=== PATIENT | female | born 1940 | race Caucasian/White ===

== ENCOUNTER → 2023-12-22 11:45 | Outpatient (REF) | payer MEDICARE, OTHER, SELFPAY ==
[2023-12-22 13:02] LABS: % Basophils 0.8 % (0-2); % Eosinophils 1.2 % (0-6); % Immature Granulocytes 0.3 % (0-0.5); % Lymphocytes 36.3 % (20.5-51.1); % Monocytes 6.2 % (1.7-9.3); % Neutrophils 55.2 % (42.2-75.2); Absolute Basophils 0.1 10^3/uL (0-0.2); Absolute Eosinophils 0.1 10^3/uL (0-0.7); Absolute Lymphocytes 2.8 10^3/uL (1.2-3.4); Absolute Monocytes 0.5 10^3/uL (0.1-0.6); Absolute Neutrophils 4.2 10^3/uL (1.4-6.5); Hematocrit 35.9 % (37.0-47.0); Hemoglobin 11.7 g/dL (12.0-16.0); Mean Corp Hgb Conc. 32.6 g/dL (33.0-37.0); Mean Corpuscular Hgb 32.1 pg (27.0-31.0); Mean Corpuscular Volume 98.6 fL (81.0-99.0); Mean Platelet Volume 10.7 fL (7.4-10.4); Nucleated Red Blood Cells % 0 %; Platelet Count 270 10^3/uL (130-400); Red Blood Cell Count 3.64 10^6/uL (4.20-5.40); Red Cell Dist. Width 12.6 % (11.5-14.5); White Blood Cell Count 7.6 10^3/uL (4.8-10.8)
[2023-12-22 13:04] LABS: Urine Albumin Negative (Neg - Trace); Urine Bilirubin Negative (Negative); Urine Character Clear (Clear); Urine Color Yellow; Urine Glucose Negative (Negative); Urine Ketone Negative (Negative); Urine Leukocyte Trace (Negative); Urine Nitrite Negative (Negative); Urine Occult Blood Negative (Negative); Urine Specific Gravity 1.015 (<1.030); Urine Urobilinogen Negative (Neg - 1+)
[2023-12-22 13:29] LABS: Urine Red Blood Cell 0-2 /HPF (0-2); Urine White Cell 0-2 /HPF (0-5)
[2023-12-22 13:44] LABS: ALT (SGPT) 25 U/L (0-35); AST (SGOT) 33 U/L (14-36); Albumin 4.5 g/dl (3.5-5.0); Alkaline Phosphatase 83 U/L (38-126); Blood Urea Nitrogen 21 mg/dl (7-17); Calcium 9.4 mg/dl (8.4-10.2); Carbon Dioxide 27 mmol/L (22-30); Chloride 103 mmol/L (98-107); Glucose 86 mg/dl (70-99); HDL Cholesterol 77 mg/dl; LDL Cholesterol, Calculated 68 mg/dl; Potassium 4.5 mmol/L (3.5-5.1); Sodium 137 mmol/L (135-145); Total Bilirubin 0.6 mg/dl (0.2-1.3); Total Cholesterol 168 mg/dl (50-199); Total Protein 7.6 g/dl (6.3-8.2); Triglyceride 117 mg/dl (10-149); Very Low Density Lipoprotein 23 mg/dl (0-30); eGFR > 60.00
[2023-12-22 13:59] LABS: Free T4 0.93 ng/dl (0.78-2.19); Vitamin D, 25-OH*** 54.9 ng/mL (30-80)
== END ==
LOC: REG 11:45
PROVIDERS: ATTENDING PHYSICIAN Internal Medicine Geriatric Medicine
DX: I10 Essential (primary) hypertension (principal); E78.2 Mixed hyperlipidemia; E06.9 Thyroiditis, unspecified; R09.89 Other specified symptoms and signs involving the circulatory and respiratory systems; R59.9 Enlarged lymph nodes, unspecified; G90.01 Carotid sinus syncope; M54.12 Radiculopathy, cervical region; M06.09 Rheumatoid arthritis without rheumatoid factor, multiple sites; M79.18 Myalgia, other site; R13.19 Other dysphagia; R22.1 Localized swelling, mass and lump, neck; R20.2 Paresthesia of skin; R26.89 Other abnormalities of gait and mobility; Z13.89 Encounter for screening for other disorder; Z79.899 Other long term (current) drug therapy
CPT/HCPCS: 36415; 80053; 80061; 81003; 81015; 82306; 84439; 84443; 85025

== ENCOUNTER → 2024-01-10 15:02 | Outpatient (REF) | payer MEDICARE, OTHER, SELFPAY | LOC: WDC 15:02 | PROVIDERS: ATTENDING PHYSICIAN Internal Medicine Geriatric Medicine | DX: Z12.31 Encounter for screening mammogram for malignant neoplasm of breast (principal) | CPT/HCPCS: 77063; 77067 ==

== ENCOUNTER → 2024-02-21 07:55 | Outpatient (REF) | payer MEDICARE, OTHER, SELFPAY | LOC: RSP 07:55 | PROVIDERS: ATTENDING PHYSICIAN Internal Medicine Cardiovascular Disease; FAMILY PHYSICIAN Internal Medicine Geriatric Medicine | DX: R06.09 Other forms of dyspnea (principal) | CPT/HCPCS: 94727; 94729; 71046; 88738; 94010 ==

== ENCOUNTER → 2024-04-06 08:45 | Outpatient (REF) | payer MEDICARE, OTHER, SELFPAY ==
[2024-04-06 09:29] LABS: % Basophils 0.7 % (0-2); % Eosinophils 1.4 % (0-6); % Immature Granulocytes 0.3 % (0-0.5); % Lymphocytes 30.9 % (20.5-51.1); % Neutrophils 60.7 % (42.2-75.2); Absolute Basophils 0.1 10^3/uL (0-0.2); Absolute Eosinophils 0.1 10^3/uL (0-0.7); Absolute Lymphocytes 2.8 10^3/uL (1.2-3.4); Absolute Monocytes 0.5 10^3/uL (0.1-0.6); Absolute Neutrophils 5.5 10^3/uL (1.4-6.5); Hematocrit 35.5 % (37.0-47.0); Mean Corp Hgb Conc. 33.8 g/dL (33.0-37.0); Mean Corpuscular Hgb 32.2 pg (27.0-31.0); Mean Corpuscular Volume 95.2 fL (81.0-99.0); Mean Platelet Volume 10.1 fL (7.4-10.4); Nucleated Red Blood Cells % 0 %; Platelet Count 295 10^3/uL (130-400); Red Blood Cell Count 3.73 10^6/uL (4.20-5.40); Red Cell Dist. Width 12.4 % (11.5-14.5)
[2024-04-06 09:51] LABS: ALT (SGPT) 25 U/L (0-35); AST (SGOT) 30 U/L (14-36); Albumin 4.6 g/dl (3.5-5.0); Alkaline Phosphatase 78 U/L (38-126); Blood Urea Nitrogen 22 mg/dl (7-17); Calcium 9.7 mg/dl (8.4-10.2); Carbon Dioxide 29 mmol/L (22-30); Chloride 100 mmol/L (98-107); Glucose 93 mg/dl (70-99); Potassium 4.5 mmol/L (3.5-5.1); Sodium 137 mmol/L (135-145); Total Bilirubin 0.6 mg/dl (0.2-1.3); Total Protein 7.5 g/dl (6.3-8.2); eGFR > 60.00
[2024-04-06 09:52] LABS: C-Reactive Protein < 5.00 mg/L (0.0-10.00)
[2024-04-06 10:52] LABS: Erythrocyte Sed Rate 23 mm/hour (0-20)
[2024-04-08 14:39] LABS: Quantiferon Mitogen minus NIL 9.91 IU/mL; Quantiferon NIL 0.09 IU/mL; Quantiferon Plus TB1 minus NIL 0.01 IU/mL (<=0.34); Quantiferon Plus TB2 minus NIL 0.06 IU/mL (<=0.34); Quantiferon TB Gold Plus Negative (Negative)
== END ==
LOC: REG 08:45
PROVIDERS: ATTENDING PHYSICIAN Internal Medicine Rheumatology; FAMILY PHYSICIAN Internal Medicine Geriatric Medicine
DX: M06.09 Rheumatoid arthritis without rheumatoid factor, multiple sites (principal); M17.11 Unilateral primary osteoarthritis, right knee; M54.2 Cervicalgia; M81.0 Age-related osteoporosis without current pathological fracture; Z51.81 Encounter for therapeutic drug level monitoring
CPT/HCPCS: 36415; 80053; 85025; 85652; 86140; 86480

== ENCOUNTER → 2024-06-21 07:40 | Outpatient (REF) | payer MEDICARE, OTHER, SELFPAY | LOC: RAD 07:40 | PROVIDERS: ATTENDING PHYSICIAN Internal Medicine Rheumatology; FAMILY PHYSICIAN Internal Medicine Geriatric Medicine | DX: M81.0 Age-related osteoporosis without current pathological fracture (principal) | CPT/HCPCS: 77080 ==

== ENCOUNTER → 2024-12-15 10:33 | Outpatient (REF) | payer MEDICARE, OTHER, SELFPAY ==
[2024-12-15 11:24] LABS: % Basophils 0.6 % (0-2); % Eosinophils 1.4 % (0-6); % Immature Granulocytes 0.2 % (0-0.5); % Lymphocytes 29.5 % (20.5-51.1); % Monocytes 6.7 % (1.7-9.3); % Neutrophils 61.6 % (42.2-75.2); Absolute Basophils 0.1 10^3/uL (0-0.2); Absolute Eosinophils 0.1 10^3/uL (0-0.7); Absolute Lymphocytes 2.5 10^3/uL (1.2-3.4); Absolute Monocytes 0.6 10^3/uL (0.1-0.6); Absolute Neutrophils 5.1 10^3/uL (1.4-6.5); Hematocrit 37.9 % (37.0-47.0); Hemoglobin 12.5 g/dL (12.0-16.0); Mean Corpuscular Hgb 32.8 pg (27.0-31.0); Mean Corpuscular Volume 99.5 fL (81.0-99.0); Mean Platelet Volume 10.3 fL (7.4-10.4); Nucleated Red Blood Cells % 0 %; Platelet Count 296 10^3/uL (130-400); Red Blood Cell Count 3.81 10^6/uL (4.20-5.40); Red Cell Dist. Width 12.4 % (11.5-14.5); White Blood Cell Count 8.4 10^3/uL (4.8-10.8)
[2024-12-15 11:32] LABS: Urine Albumin Negative (Neg - Trace); Urine Bilirubin Negative (Negative); Urine Character Clear (Clear); Urine Color Yellow; Urine Glucose Negative (Negative); Urine Ketone Negative (Negative); Urine Leukocyte 3+ (Negative); Urine Nitrite Negative (Negative); Urine Occult Blood 1+ (Negative); Urine Urobilinogen Negative (Neg - 1+)
[2024-12-15 11:52] LABS: Urine Bacteria Moderate (Negative); Urine White Cell >100 /HPF (0-5)
[2024-12-15 11:56] LABS: ALT (SGPT) 23 U/L (0-35); AST (SGOT) 28 U/L (14-36); Albumin 4.9 g/dl (3.5-5.0); Alkaline Phosphatase 76 U/L (38-126); Blood Urea Nitrogen 20 mg/dl (7-17); Carbon Dioxide 28 mmol/L (22-30); Chloride 100 mmol/L (98-107); Glucose 94 mg/dl (70-99); HDL Cholesterol 65 mg/dl; LDL Cholesterol, Calculated 88 mg/dl; Phosphorus 4.2 mg/dl (2.5-4.5); Potassium 4.6 mmol/L (3.5-5.1); Sodium 138 mmol/L (135-145); Total Bilirubin 0.8 mg/dl (0.2-1.3); Total Cholesterol 186 mg/dl (50-199); Total Protein 8.1 g/dl (6.3-8.2); Triglyceride 169 mg/dl (10-149); Very Low Density Lipoprotein 33 mg/dl (0-30); eGFR > 60.00
[2024-12-15 12:11] LABS: Vitamin D, 25-OH*** 50.1 ng/mL (30-80)
== END ==
LOC: REG 10:33
PROVIDERS: ATTENDING PHYSICIAN Internal Medicine Cardiovascular Disease; FAMILY PHYSICIAN Internal Medicine Geriatric Medicine
DX: M79.10 Myalgia, unspecified site (principal); M06.9 Rheumatoid arthritis, unspecified; I11.0 Hypertensive heart disease with heart failure; E06.9 Thyroiditis, unspecified; R59.9 Enlarged lymph nodes, unspecified; M54.12 Radiculopathy, cervical region; M06.09 Rheumatoid arthritis without rheumatoid factor, multiple sites; M79.18 Myalgia, other site; R13.19 Other dysphagia; R22.1 Localized swelling, mass and lump, neck; R20.2 Paresthesia of skin; Z13.31 Encounter for screening for depression; I50.32 Chronic diastolic (congestive) heart failure; I50.30 Unspecified diastolic (congestive) heart failure; R06.09 Other forms of dyspnea
CPT/HCPCS: 36415; 73564; 80053; 80061; 81003; 81015; 82306; 84100; 85025

== ENCOUNTER 2024-12-17 20:27 | Emergency (ER) | payer MEDICARE, OTHER, SELFPAY ==
[2024-12-17 20:33] VITALS: BP 171/84
[2024-12-17] MEDS: TYLENOL 650 MG PO (22:28)
--- NOTE | 2024-12-17 22:30 | ED.GENMED ---
History of Present Illness
General
Chief Complaint: Head Injury
Source: patient and family (Patient's daughter at bedside)
Exam Limitations: none
Time Seen by Provider: 12/17/24 21:24
Nursing documentation reviewed up to this point in time: agreed with
History of Present Illness
History of Present Illness:
Patient is an 84-year-old female presenting to the emergency department after head injury. Patient states she was assisting her who is in a nursing facility with changing his clothes when she lost her balance falling backwards striking the
left side of her head on the floor. This fall was witnessed by both her and a nearby aide at his nursing facility. There was no loss of conscious. Patient was able to get up independently. Patient denies any preceding lightheadedness,
dizziness, chest pain, shortness of breath and states this was simply mechanical fall after losing her balance. This happened about 1 to 2 hours prior to arrival in emergency department.
At this time�patient reports pain on the left side of her head and a bump patient denies any nausea, vomiting, lightheadedness/dizziness, visual changes, neck pain or back pain. Patient states she has been and relating independently. Patient
denies any pain in her extremities. Patient's daughter states she seems at her baseline mental status.
Patient takes a baby aspirin, otherwise no blood thinners.
Past History
Past History
ED Past Medical History: GERD, HTN, Hypercholesterolemia, Psychiatric (Anxiety, Agoraphobia with panic disorder.) and Other (Rheumatoid arthritis, polymyalgia rheumatica, osteoporosis)
ED Past Surgical History: Gynecological (Hysterectomy) and Other (Inguinal hernia repair)
Social History
Tobacco: Non-smoker
Alcohol: None
Drug: None
Personal:
Living: with family
Employment: Retired
Family History
Family History: Other
Review of Systems
Review of Systems
Allergies reviewed?: Yes
All Other Systems: ROS reviewed and negative except as documented in HPI and ROS
Phy Exam
Physical Exam
Physical Exam:
GENERAL: No acute distress. Vital stable.
HEENT: Hematoma with associated tenderness on the left posterior parietal scalp, extraocular muscles intact, PERRL, no signs of entrapment, dentition intact, no tenderness to TMJ, no other obvious trauma
NECK: no midline tenderness, normal range of motion, no other obvious trauma
BACK: no midline tenderness, no ecchymoses, no other obvious trauma
CHEST: no tenderness, no flail segment, no subcutaneous emphysema, no other obvious trauma
LUNGS: clear to auscultation bilaterally
CARDIOVASCULAR: regular rate and rhythm
ABDOMEN: soft, non-tender, no masses, no other obvious trauma
PELVIS: stable, no obvious injury
EXTREMITIES: moving all extremities, bilateral upper and lower extremities atraumatic and nontender with full range of motion, specifically no pain with internal/external rotation of bilateral hips distal pulses intact, no other obvious trauma
NEUROLOGIC: awake, alert x 3, no focal deficits, fluid speech, steady gait, normal [id number], normal sensation
Course
Orders/Labs/Results
Orders:
Orders
12/17/24 20:37
CT Head W/o Iv Contrast Urgent
Comment:
Reason For Exam: fall, posterior head strike with hematoma
12/17/24 21:29
Cervical Spine wo Contrast CT [CT Cervical Spine W/o Iv Contr] Urgent
Comment:
Reason For Exam: fall, posterior head strike
12/17/24 22:24
Acetaminophen [Tylenol] 650 mg PO NOW STA
Vital Signs
Initial and Last Documented VS:
Initial Vital Signs
Temp Pulse Resp BP Pulse Ox
98.1 F 97 18 171/84 98
12/17/24 20:33 12/17/24 20:33 12/17/24 20:33 12/17/24 20:33 12/17/24 20:33
Last Documented Vital Signs
Temp Pulse Resp BP Pulse Ox
98.1 F 92 16 148/70 98
12/17/24 20:33 12/17/24 23:22 12/17/24 23:22 12/17/24 23:22 12/17/24 23:22
MDM/Problems Addressed
Differential Diagnosis Includes:
Not limited to: Scalp hematoma, scalp contusion, concussion, subdural hematoma, epidural hematoma, cervical spine fracture, etc.
MDM/Problems Addressed:
84 year old female not on anticoagulation presenting with head injury after mechanical fall while assisting her to change. This fall was witnessed and no history of LOC. No proceeding dizziness, chest pain, shortness of breath. Patient now
with localized headache around scalp contusion but denies any other associated symptoms. Vitals and exam as above. Patient arrives A&O x3 without any focal neurologic deficits. There is a contusion noted to left posterior-parietal scalp. No
tenderness of cervical spine, midline spine, or evidence of extremity injury. Will give tylenol and check CT head/ cervical spine.
Update: CT head reveals scalp hematoma. No other acute traumatic injuries to head or cervical spine. Discussed with patient and daughter. She has remained hemodynamically stable and neurologically intact. Ultimately feel patient is stable for
discharge home with PCP f/u. Patient will stay with her daughter oriana. Very strict return precautions discussed. Patient verbalized understanding.
Chronic conditions affecting care:
N/A
Acute Exacerbation and/or Progression of Chronic Illness:
N/A
*Radiology
Radiology exam reviewed: preliminary read by ED provider and radiology read reviewed (No acute traumatic injury)
*Pulse Oximetry
Patient hypoxic: no
*EKG
Interpreted by ED Provider?: NA
*Sports Management Intern Interpretation
Rate: Sports Management Intern- N/A
*Critical Care Note
Total Time (30-74mins, 75-104mins- exclusive of procedures): Not Applicable
ED Attending Note
-
Portions of this chart may have been created with voice recognition software.� Occasional wrong word or��sound alike� substitutions may have occurred due to the inherent limitations of voice recognition software.
Discharge Plan
Departure
Patient Disposition: Home (Routine Discharge)
Date of Disposition: 12/17/24
Time of Disposition: 23:05
Patient with high blood pressure during this ER visit?: Yes
Condition: Good
Covid-19: Not Applicable
Discharge Problem:
Hematoma of scalp, Fall
Instructions: Head injury in adults, BLOOD PRESSURE, Hematoma
Prescriptions:
No Action
aspirin 81 MG tablet,delayed release (DR/EC)
81 mg PO DAILY
ascorbic acid (vitamin C) [Vitamin C] 500 MG tablet
1,000 mg PO DAILY
calcium carbonate-vitamin D2 1 EACH tablet
1 tab PO DAILY
folic acid 1 MG tablet
1 mg PO DAILY
Multivitamin With D3
1 tab PO DAILY
infliximab [Remicade] 100 MG/10 ML recon soln
100 mg IV .[id number]
primidone 50 MG tablet
25 mg PO DAILY
atorvastatin 10 MG tablet
10 mg PO DAILY
denosumab [Prolia] 60 MG/ML syringe
60 mg SQ .[id number]
levofloxacin 500 MG tablet
500 mg PO DAILY Qty: 6 0RF
methotrexate sodium 2.5 MG tablet
15 mg PO WEEKLY Qty: 0 0RF
Rx Instructions:
restart 06/05/18
prednisone 50 MG tablet
50 mg PO DAILY Qty: 5 0RF
dextromethorphan-guaifenesin 5 ML syrup
10 ml PO Q4HPRN PRN (Reason: cough) Qty: 200 0RF
methylprednisolone [Medrol (Arturo)] 4 MG tablets,dose pack
4 tab PO . DIRECT Qty: 1 0RF
prednisone 20 MG tablet
40 mg PO DAILY Qty: 8 0RF
metoprolol succinate [Toprol XL] 25 MG tablet extended release 24 hr
25 mg PO DAILY Qty: 30 0RF
Referrals:
Stephan Ho MD [Family Provider] - Follow up in 2-3 days
Activity Restrictions/Additional Instructions:
Return to the emergency department with any severe headache or neck pain, nausea/vomiting, changes in vision, dizziness, changes in mental status, worsening in current symptoms, or any other concern
-As discussed�your CT imaging did show a hematoma to your scalp. However�there was no evidence of skull fracture or intracranial bleeding.
-You should continue to apply ice. Take Tylenol as needed for pain.
-Follow-up with primary care in a few days for further evaluation/management to ensure that symptoms are improving
Monitor your symptoms closely and return to the emergency department with any acute worsening/new symptoms or any other concerns
Interventions
Interventions:
*Risk Screen - Suicide Last Done: 12/17/24 20:33
*General Assessment Last Done: 12/17/24 20:33
*Neglect/Abuse Screening Last Done: 12/17/24 20:33
*ED- Fall Risk Assessment Last Done: 12/17/24 21:22
*ED COVID-19 Vaccine History Last Done: 12/17/24 21:22
*Nursing Disposition Last Done: 12/17/24 23:22
ED-Musculoskeletal Assessment Last Done: 12/17/24 21:22
ED- Neurological Assessment Last Done: 12/17/24 21:22
ED-Skin Assessment Last Done: 12/17/24 21:22
Discharge Date and Time
Discharge Date/Time: 12/17/24 23:23
Print Language: STATELESS
[2024-12-17 23:22] VITALS: BP 148/70
== END 2024-12-17 23:23 | disposition home or self-care (01) ==
LOC: EMR 20:27
PROVIDERS: EMERGENCY PHYSICIAN Emergency Medicine; FAMILY PHYSICIAN Internal Medicine Geriatric Medicine
DX: S00.03XA Contusion of scalp, initial encounter (principal); W19.XXXA Unspecified fall, initial encounter; I10 Essential (primary) hypertension
CPT/HCPCS: 99284; 70450; 72125

== ENCOUNTER → 2025-02-13 07:41 | Outpatient (REF) | payer MEDICARE, OTHER, SELFPAY | LOC: WDC 07:41 | PROVIDERS: ATTENDING PHYSICIAN Internal Medicine Geriatric Medicine | DX: Z12.31 Encounter for screening mammogram for malignant neoplasm of breast (principal) | CPT/HCPCS: 77063; 77067 ==

== ENCOUNTER → 2025-03-01 09:39 | Outpatient (REF) | payer MEDICARE, OTHER, SELFPAY ==
[2025-03-01 10:56] LABS: % Basophils 0.6 % (0-2); % Eosinophils 1.5 % (0-6); % Immature Granulocytes 0.3 % (0-0.5); % Lymphocytes 30.7 % (20.5-51.1); % Monocytes 6.1 % (1.7-9.3); % Neutrophils 60.8 % (42.2-75.2); Absolute Basophils 0.1 10^3/uL (0-0.2); Absolute Eosinophils 0.1 10^3/uL (0-0.7); Absolute Lymphocytes 2.4 10^3/uL (1.2-3.4); Absolute Monocytes 0.5 10^3/uL (0.1-0.6); Absolute Neutrophils 4.8 10^3/uL (1.4-6.5); Hematocrit 38.8 % (37.0-47.0); Hemoglobin 12.8 g/dL (12.0-16.0); Mean Corpuscular Hgb 33.2 pg (27.0-31.0); Mean Corpuscular Volume 100.5 fL (81.0-99.0); Mean Platelet Volume 10.8 fL (7.4-10.4); Nucleated Red Blood Cells % 0 %; Platelet Count 259 10^3/uL (130-400); Red Blood Cell Count 3.86 10^6/uL (4.20-5.40); Red Cell Dist. Width 12.5 % (11.5-14.5); White Blood Cell Count 7.9 10^3/uL (4.8-10.8)
[2025-03-01 11:02] LABS: ALT (SGPT) 21 U/L (0-35); AST (SGOT) 26 U/L (14-36); Albumin 4.8 g/dl (3.5-5.0); Alkaline Phosphatase 73 U/L (38-126); Blood Urea Nitrogen 18 mg/dl (7-17); Calcium 9.9 mg/dl (8.4-10.2); Carbon Dioxide 32 mmol/L (22-30); Chloride 105 mmol/L (98-107); Glucose 95 mg/dl (70-99); Potassium 5.4 mmol/L (3.5-5.1); Sodium 144 mmol/L (135-145); Total Bilirubin 0.4 mg/dl (0.2-1.3); Total Protein 8.5 g/dl (6.3-8.2); eGFR > 60.00
[2025-03-01 11:14] LABS: Erythrocyte Sed Rate 65 mm/hour (0-20)
[2025-03-01 14:46] LABS: C-Reactive Protein < 5.00 mg/L (0.0-10.00)
== END ==
LOC: REG 09:39
PROVIDERS: ATTENDING PHYSICIAN Internal Medicine Rheumatology; FAMILY PHYSICIAN Internal Medicine Geriatric Medicine
DX: M06.09 Rheumatoid arthritis without rheumatoid factor, multiple sites (principal); M17.11 Unilateral primary osteoarthritis, right knee; M54.2 Cervicalgia; M81.0 Age-related osteoporosis without current pathological fracture; Z51.81 Encounter for therapeutic drug level monitoring
CPT/HCPCS: 36415; 80053; 85025; 85652; 86140

== ENCOUNTER → 2025-04-08 09:31 | Outpatient (REF) | payer MEDICARE, OTHER, SELFPAY ==
[2025-04-08 10:52] LABS: Hematocrit 34.7 % (37.0-47.0); Hemoglobin 11.6 g/dL (12.0-16.0); Mean Corp Hgb Conc. 33.4 g/dL (33.0-37.0); Mean Corpuscular Volume 98.0 fL (81.0-99.0); Nucleated Red Blood Cells % 0 %; Platelet Count 319 10^3/uL (130-400); Red Cell Dist. Width 12.6 % (11.5-14.5)
[2025-04-08 11:28] LABS: Blood Urea Nitrogen 18 mg/dl (7-17); Calcium 9.7 mg/dl (8.4-10.2); Carbon Dioxide 27 mmol/L (22-30); Chloride 105 mmol/L (98-107); Glucose 92 mg/dl (70-99); Potassium 4.8 mmol/L (3.5-5.1); Sodium 138 mmol/L (135-145); eGFR > 60.00
== END ==
LOC: REG 09:31
PROVIDERS: ATTENDING PHYSICIAN Nurse Practitioner Family; FAMILY PHYSICIAN Internal Medicine Geriatric Medicine
DX: M62.838 Other muscle spasm (principal); M54.12 Radiculopathy, cervical region; E78.2 Mixed hyperlipidemia; M06.9 Rheumatoid arthritis, unspecified; I11.0 Hypertensive heart disease with heart failure; I10 Essential (primary) hypertension; E06.9 Thyroiditis, unspecified; M06.09 Rheumatoid arthritis without rheumatoid factor, multiple sites; R13.19 Other dysphagia; Z13.31 Encounter for screening for depression; R22.1 Localized swelling, mass and lump, neck; I50.32 Chronic diastolic (congestive) heart failure; Z12.39 Encounter for other screening for malignant neoplasm of breast; R63.4 Abnormal weight loss; R92.30 Dense breasts, unspecified
CPT/HCPCS: 36415; 80048; 85025

== ENCOUNTER → 2025-05-17 07:47 | Outpatient (REF) | payer MEDICARE, OTHER, SELFPAY | LOC: WDC 07:47 | PROVIDERS: ATTENDING PHYSICIAN Internal Medicine Geriatric Medicine | DX: R92.2 Inconclusive mammogram (principal) | CPT/HCPCS: 76641 ==

== ENCOUNTER → 2025-05-17 09:09 | Outpatient (REF) | payer MEDICARE, OTHER, SELFPAY ==
[2025-05-17 09:44] LABS: Hematocrit 37.5 % (37.0-47.0); Hemoglobin 12.5 g/dL (12.0-16.0); Mean Corp Hgb Conc. 33.3 g/dL (33.0-37.0); Mean Corpuscular Volume 100.5 fL (81.0-99.0); Nucleated Red Blood Cells % 0 %; Platelet Count 244 10^3/uL (130-400); Red Cell Dist. Width 13.3 % (11.5-14.5)
[2025-05-17 10:38] LABS: ALT (SGPT) 22 U/L (0-35); AST (SGOT) 25 U/L (14-36); Albumin 4.8 g/dl (3.5-5.0); Alkaline Phosphatase 67 U/L (38-126); Blood Urea Nitrogen 20 mg/dl (7-17); Calcium 9.8 mg/dl (8.4-10.2); Carbon Dioxide 29 mmol/L (22-30); Chloride 102 mmol/L (98-107); Glucose 101 mg/dl (70-99); Potassium 4.2 mmol/L (3.5-5.1); Sodium 138 mmol/L (135-145); Total Protein 8.3 g/dl (6.3-8.2); eGFR > 60.00
[2025-05-17 11:22] LABS: C-Reactive Protein < 5.00 mg/L (0.0-10.00)
== END ==
LOC: REG 09:09
PROVIDERS: ATTENDING PHYSICIAN Internal Medicine Rheumatology; FAMILY PHYSICIAN Internal Medicine Geriatric Medicine
DX: M06.09 Rheumatoid arthritis without rheumatoid factor, multiple sites (principal); M17.11 Unilateral primary osteoarthritis, right knee; M54.2 Cervicalgia; M81.0 Age-related osteoporosis without current pathological fracture; Z51.81 Encounter for therapeutic drug level monitoring
CPT/HCPCS: 36415; 80053; 85025; 85652; 86140

== ENCOUNTER 2025-06-28 20:09 | Inpatient (IN) | payer MEDICARE, OTHER, SELFPAY ==
[2025-06-28] VITALS (9 sets, daily range): BP systolic 109–133; BP diastolic 61–95; BMI 17.9; BMI 16.9
[2025-06-28 13:16] LABS: Hematocrit 34.6 % (37.0-47.0); Hemoglobin 12.1 g/dL (12.0-16.0); Mean Corp Hgb Conc. 35.0 g/dL (33.0-37.0); Mean Corpuscular Volume 92.8 fL (81.0-99.0); Nucleated Red Blood Cells % 0 %; Platelet Count 273 10^3/uL (130-400); Red Cell Dist. Width 12.4 % (11.5-14.5)
[2025-06-28 13:49] LABS: ALT (SGPT) 169 U/L (0-35); AST (SGOT) 369 U/L (14-36); Albumin 4.0 g/dl (3.5-5.0); Alkaline Phosphatase 85 U/L (38-126); Blood Urea Nitrogen 28 mg/dl (7-17); Calcium 8.9 mg/dl (8.4-10.2); Carbon Dioxide 21 mmol/L (22-30); Chloride 100 mmol/L (98-107); Glucose 153 mg/dl (70-99); Potassium 4.2 mmol/L (3.5-5.1); Sodium 132 mmol/L (135-145); Total Protein 7.6 g/dl (6.3-8.2); eGFR > 60.00
--- NOTE | 2025-06-28 15:13 | ED.GENMED ---
History of Present Illness
<KAMARI Alcaraz - Last Filed: 06/29/25 18:41>
General
Chief Complaint: Fever
Source: patient and family
Exam Limitations: none
Time Seen by Provider: 06/28/25 14:11
Nursing documentation reviewed up to this point in time: agreed with
History of Present Illness
History of Present Illness:
Patient is a 85-year-old female who was brought by family for evaluation. For the past 5 days patient has felt very tired fatigued has had intermittent headache and no appetite. Family reports patient typically is very active however not herself
recently. Patient complaints presently feeling very tired but denies current headache. She has had chills, denies runny nose sore throat, cough. No other sick contacts. She denies any urinary symptoms. Daughter reports patient is even too
weak to walk. She denies any abdominal pain.
Past History
<KAMARI Alcaraz - Last Filed: 06/29/25 18:41>
Past History
ED Past Medical History: GERD, HTN, Hypercholesterolemia, Psychiatric (Anxiety, Agoraphobia with panic disorder.) and Other (Rheumatoid arthritis, polymyalgia rheumatica, osteoporosis)
ED Past Surgical History: Gynecological (Hysterectomy) and Other (Inguinal hernia repair)
Social History
Tobacco: Non-smoker
Alcohol: None
Drug: None
Personal:
Living: with family
Employment: Retired
Family History
Family History: Other
Phy Exam
<KAMARI Alcaraz - Last Filed: 06/29/25 18:41>
General Physical Exam
General Presentation: no apparent distress
General age: appears stated age
General Skin: warm and dry
General Habitus: elderly
General Mental: alert
General Hydration: dry mucous membranes
Neurological Exam
Neurological Exam: alert and oriented x3
Musculoskeletal Exam
Musculoskeletal Exam: full ROM
Skin Exam
Skin Exam: normal color and warm/dry
Psychiatric Exam
Psychiatric Exam: normal mood/affect
Course
<KAMARI Alcaraz - Last Filed: 06/29/25 18:41>
Orders/Labs/Results
Orders:
Orders
06/28/25
Electrocardiogram (*1) Stat
Comment: DONE EMR
06/28/25 12:56
CR Chest - 2 Views Urgent
Comment:
Reason For Exam: low pulse ox.
06/28/25 13:07
Complete Blood Count/With Diff Urgent
Comprehensive Metabolic Panel Urgent
Lactic Acid Urgent
Lipase Urgent
Comment: ADD ON
06/28/25 15:21
Straight cath- Treatment ONCE
06/28/25 15:24
0.9% Sodium Chloride 500 ml [Nss] 500 ml IV BOLUS
06/28/25 16:13
COVID-19 Antigen Urgent
Source: Nasal Swab
Influenza A+B Rapid Molecular Urgent
TD Source: Nasal Swab
Specimen Description:
06/28/25 16:33
UA Reflex to Culture [Urinalysis Reflex To Culture] Urgent
Date Specimen was Collected: 06/28/25
Time Specimen was Collected: 16:31
Urine Microscopic Reflex Cult Urgent
Urine Culture Urgent
TD Source: U
Specimen Description:
Date Specimen was Collected: 06/28/25
Time Specimen was Collected: 16:31
06/28/25 16:39
US Abdomen Complete/Upper Urgent
Comment:
Reason For Exam: elevated lfts
06/28/25 16:54
Ehrlichia/Anaplasma by PCR [S] Urgent
Lyme Progressive Urgent
Blood Parasites Urgent
TD Source: Blood/Venous
Specimen Description:
06/28/25 18:00
Ciprofloxacin 400 mg/[id number] [Cipro 400 mg] 200 ml IV NOW
06/28/25 19:51
Admit/Transfer Patient As Directed
Co-Sign Provider:
Level of Care: Inpatient admission
Assign to:: Medical/Surgical
Physician / Group: Matty
Diagnosis: UTI
Reason for Hospitalization: weakness, inability to walk
Expected length of stay greater than two midnights?: Yes
ELOS- Estimated Length of Stay in days: 2
I certify the patient meets the requirements for IP care: Yes
PRN Pain Medication Management As Directed
May give lesser potent ordered pain med per pt: Yes
preference::
Protocol:: Medication orders for pain may be administered in a
manner that supports deferring to patient preference
when the pt is:
- Requesting an ordered lesser potent pain medication.
Least to most potent pain medications are defined
as: acetaminophen < NSAID < tramadol < opioids
(morphine, oxycodone, hydromorphone).
- Requesting a lesser dose of the same medication IF
ORDERED.
- Requesting a less intrusive route of administration
if both routes are prescribed by the provider (PO <
IV).
06/28/25 19:52
Code Status As Directed
Resuscitation Status: Full Code
06/28/25 20:55
0.9% Sodium Chloride 1000 ml [Nss] 1,000 ml IV 80 mls/hr
Acetaminophen [Tylenol] 650 mg PO Q4HPRN PRN
Bisacodyl [Dulcolax] 10 mg RECTAL [id number] PRN
Docusate W/Senna [Senokot-S] 1 tablet PO BIDPRN PRN
Polyethylene Glycol Powder [Miralax] 17 grams PO DAILYPRN PRN
06/28/25 20:55
MR Mrcp Without Routine
Comment:
Reason For Exam: high lipase and transaminitis, eval teresa obstructio
Recent pill cam endoscopy?: No
Activity As Directed
Activity Level: With Assistance
Intake/ Output As Directed
Frequency: Per unit guidelines
Orthostatic Vital Signs As Directed
Orthostatic VS Frequency: Daily
Vital Signs As Directed
Frequency: Per unit guidelines
Pulse Ox/spot Check [RESP] Routine
Quantity: 1
Pt Eval And Treat Routine
Activity Level: With Assistance
DX Deep Vein Thrombosis Video Routine
06/29/25 Breakfast
Clear Liquid
At Your Request: Full Participation
Ciprofloxacin 400 mg/[id number] [Cipro 400 mg] 200 ml IV Q12H
06/29/25 06:40
Complete Blood Count/No Diff IN AM
Hepatitis A IgM Antibody IN AM
Hepatitis B Core Ab, IgM IN AM
Hepatitis B Surface Antibody IN AM
Hepatitis B Surface Antigen IN AM
Hepatitis C Antibody IN AM
Lipase IN AM
Magnesium IN AM
TSH Reflex To Free T4 IN AM
06/29/25 08:00
Aspirin Low Dose EC [Aspir Low (Enteric Coated)] 81 mg PO DAILY
Atorvastatin [Lipitor] 10 mg PO DAILY
Metoprolol Xl [Toprol Xl] 12.5 mg PO DAILY
Primidone [Mysoline] 25 mg PO DAILY
06/29/25 18:00
Enoxaparin Sodium [Lovenox] 40 mg SC QPM
Abnormal Lab Results
06/28/25 06/28/25
13:07 16:33
RBC 3.73 L 10^6/uL
(4.20-5.40)
Hct 34.6 L %
(37.0-47.0)
MCH 32.4 H pg
(27.0-31.0)
Abs Immat Gran (auto) 0.1 H 10^3/uL
(0-0.05)
Absolute Neuts (auto) 8.8 H 10^3/uL
(1.4-6.5)
Absolute Lymphs (auto) 0.8 L 10^3/uL
(1.2-3.4)
Absolute Monos (auto) 1.1 H 10^3/uL
(0.1-0.6)
Immature Gran % 0.7 H %
(0-0.5)
Neutrophils % 81.9 H %
(42.2-75.2)
Lymphocytes % 7.2 L %
(20.5-51.1)
Monocytes % 9.9 H %
(1.7-9.3)
Sodium 132 L mmol/L
(135-145)
Carbon Dioxide 21 L mmol/L
(22-30)
BUN 28 H mg/dl
(7-17)
Glucose 153 H mg/dl
(70-99)
AST 369 H U/L
(14-36)
ALT 169 H U/L
(0-35)
Lipase 334 H U/L
(23-300)
Urine Ketones 2+ A
(Negative)
Ur Occult Blood Reflex 3+ A
(Negative)
Urine Bilirubin 1+ A
(Negative)
Urine Urobilinogen 2+ A
(Neg - 1+)
Leukocyte Esterase Rfl 1+ A
(Negative)
Urine RBC 3-6 A /HPF
(0-2)
Urine WBC (Reflex) 11-15 A /HPF
(0-5)
Urine Bacteria (Reflex) Many A
(Negative)
Urine Albumin (Reflex) 3+ A
(Neg - Trace)
06/28/25 13:07
06/28/25 13:07
Vital Signs
Initial and Last Documented VS:
Initial Vital Signs
Temp Pulse Resp BP Pulse Ox
99.0 F 136 20 126/69 92
06/28/25 12:53 06/28/25 12:53 06/28/25 12:53 06/28/25 12:53 06/28/25 12:53
Last Documented Vital Signs
Temp Pulse Resp BP Pulse Ox
97.7 F 108 16 108/68 95
06/29/25 08:34 06/29/25 16:28 06/29/25 16:28 06/29/25 16:28 06/29/25 16:28
<Rahul Levine MD - Last Filed: 06/28/25 17:06>
Orders/Labs/Results
Orders:
Orders
06/28/25
Electrocardiogram (*1) Stat
Comment: DONE EMR
06/28/25 12:56
CR Chest - 2 Views Urgent
Comment:
Reason For Exam: low pulse ox.
06/28/25 13:07
Complete Blood Count/With Diff Urgent
Comprehensive Metabolic Panel Urgent
Lactic Acid Urgent
Lipase Urgent
Comment: ADD ON
06/28/25 15:21
Straight cath- Treatment ONCE
06/28/25 15:24
0.9% Sodium Chloride 500 ml [Nss] 500 ml IV BOLUS
06/28/25 16:13
COVID-19 Antigen Urgent
Source: Nasal Swab
Influenza A+B Rapid Molecular Urgent
TD Source: Nasal Swab
Specimen Description:
06/28/25 16:33
UA Reflex to Culture [Urinalysis Reflex To Culture] Urgent
Date Specimen was Collected: 06/28/25
Time Specimen was Collected: 16:31
Urine Microscopic Reflex Cult Urgent
Urine Culture Urgent
TD Source: U
Specimen Description:
Date Specimen was Collected: 06/28/25
Time Specimen was Collected: 16:31
06/28/25 16:39
US Abdomen Complete/Upper Urgent
Comment:
Reason For Exam: elevated lfts
06/28/25 16:54
Ehrlichia/Anaplasma by PCR [S] Urgent
Lyme Progressive Urgent
Blood Parasites Urgent
TD Source: Blood/Venous
Specimen Description:
06/28/25 18:00
Ciprofloxacin 400 mg/[id number] [Cipro 400 mg] 200 ml IV NOW
06/28/25 19:51
Admit/Transfer Patient As Directed
Co-Sign Provider:
Level of Care: Inpatient admission
Assign to:: Medical/Surgical
Physician / Group: Matty
Diagnosis: UTI
Reason for Hospitalization: weakness, inability to walk
Expected length of stay greater than two midnights?: Yes
ELOS- Estimated Length of Stay in days: 2
I certify the patient meets the requirements for IP care: Yes
PRN Pain Medication Management As Directed
May give lesser potent ordered pain med per pt: Yes
preference::
Protocol:: Medication orders for pain may be administered in a
manner that supports deferring to patient preference
when the pt is:
- Requesting an ordered lesser potent pain medication.
Least to most potent pain medications are defined
as: acetaminophen < NSAID < tramadol < opioids
(morphine, oxycodone, hydromorphone).
- Requesting a lesser dose of the same medication IF
ORDERED.
- Requesting a less intrusive route of administration
if both routes are prescribed by the provider (PO <
IV).
06/28/25 19:52
Code Status As Directed
Resuscitation Status: Full Code
06/28/25 20:55
0.9% Sodium Chloride 1000 ml [Nss] 1,000 ml IV 80 mls/hr
Acetaminophen [Tylenol] 650 mg PO Q4HPRN PRN
Bisacodyl [Dulcolax] 10 mg RECTAL [id number] PRN
Docusate W/Senna [Senokot-S] 1 tablet PO BIDPRN PRN
Polyethylene Glycol Powder [Miralax] 17 grams PO DAILYPRN PRN
06/28/25 20:55
MR Mrcp Without Routine
Comment:
Reason For Exam: high lipase and transaminitis, eval teresa obstructio
Recent pill cam endoscopy?: No
Activity As Directed
Activity Level: With Assistance
Intake/ Output As Directed
Frequency: Per unit guidelines
Orthostatic Vital Signs As Directed
Orthostatic VS Frequency: Daily
Vital Signs As Directed
Frequency: Per unit guidelines
Pulse Ox/spot Check [RESP] Routine
Quantity: 1
Pt Eval And Treat Routine
Activity Level: With Assistance
DX Deep Vein Thrombosis Video Routine
06/29/25 Breakfast
Clear Liquid
At Your Request: Full Participation
Ciprofloxacin 400 mg/[id number] [Cipro 400 mg] 200 ml IV Q12H
06/29/25 06:40
Complete Blood Count/No Diff IN AM
Hepatitis A IgM Antibody IN AM
Hepatitis B Core Ab, IgM IN AM
Hepatitis B Surface Antibody IN AM
Hepatitis B Surface Antigen IN AM
Hepatitis C Antibody IN AM
Lipase IN AM
Magnesium IN AM
TSH Reflex To Free T4 IN AM
06/29/25 08:00
Aspirin Low Dose EC [Aspir Low (Enteric Coated)] 81 mg PO DAILY
Atorvastatin [Lipitor] 10 mg PO DAILY
Metoprolol Xl [Toprol Xl] 12.5 mg PO DAILY
Primidone [Mysoline] 25 mg PO DAILY
06/29/25 18:00
Enoxaparin Sodium [Lovenox] 40 mg SC QPM
Abnormal Lab Results
06/28/25 06/28/25
13:07 16:33
RBC 3.73 L 10^6/uL
(4.20-5.40)
Hct 34.6 L %
(37.0-47.0)
MCH 32.4 H pg
(27.0-31.0)
Abs Immat Gran (auto) 0.1 H 10^3/uL
(0-0.05)
Absolute Neuts (auto) 8.8 H 10^3/uL
(1.4-6.5)
Absolute Lymphs (auto) 0.8 L 10^3/uL
(1.2-3.4)
Absolute Monos (auto) 1.1 H 10^3/uL
(0.1-0.6)
Immature Gran % 0.7 H %
(0-0.5)
Neutrophils % 81.9 H %
(42.2-75.2)
Lymphocytes % 7.2 L %
(20.5-51.1)
Monocytes % 9.9 H %
(1.7-9.3)
Sodium 132 L mmol/L
(135-145)
Carbon Dioxide 21 L mmol/L
(22-30)
BUN 28 H mg/dl
(7-17)
Glucose 153 H mg/dl
(70-99)
AST 369 H U/L
(14-36)
ALT 169 H U/L
(0-35)
Lipase 334 H U/L
(23-300)
Urine Ketones 2+ A
(Negative)
Ur Occult Blood Reflex 3+ A
(Negative)
Urine Bilirubin 1+ A
(Negative)
Urine Urobilinogen 2+ A
(Neg - 1+)
Leukocyte Esterase Rfl 1+ A
(Negative)
Urine RBC 3-6 A /HPF
(0-2)
Urine WBC (Reflex) 11-15 A /HPF
(0-5)
Urine Bacteria (Reflex) Many A
(Negative)
Urine Albumin (Reflex) 3+ A
(Neg - Trace)
06/28/25 13:07
06/28/25 13:07
Vital Signs
Initial and Last Documented VS:
Initial Vital Signs
Temp Pulse Resp BP Pulse Ox
99.0 F 136 20 126/69 92
06/28/25 12:53 06/28/25 12:53 06/28/25 12:53 06/28/25 12:53 06/28/25 12:53
Last Documented Vital Signs
Temp Pulse Resp BP Pulse Ox
97.7 F 108 16 108/68 95
06/29/25 08:34 06/29/25 16:28 06/29/25 16:28 06/29/25 16:28 06/29/25 16:28
<Oscar Caruso PA-C - Last Filed: 06/28/25 19:19>
Orders/Labs/Results
Orders:
Orders
06/28/25
Electrocardiogram (*1) Stat
Comment: DONE EMR
06/28/25 12:56
CR Chest - 2 Views Urgent
Comment:
Reason For Exam: low pulse ox.
06/28/25 13:07
Complete Blood Count/With Diff Urgent
Comprehensive Metabolic Panel Urgent
Lactic Acid Urgent
Lipase Urgent
Comment: ADD ON
06/28/25 15:21
Straight cath- Treatment ONCE
06/28/25 15:24
0.9% Sodium Chloride 500 ml [Nss] 500 ml IV BOLUS
06/28/25 16:13
COVID-19 Antigen Urgent
Source: Nasal Swab
Influenza A+B Rapid Molecular Urgent
TD Source: Nasal Swab
Specimen Description:
06/28/25 16:33
UA Reflex to Culture [Urinalysis Reflex To Culture] Urgent
Date Specimen was Collected: 06/28/25
Time Specimen was Collected: 16:31
Urine Microscopic Reflex Cult Urgent
Urine Culture Urgent
TD Source: U
Specimen Description:
Date Specimen was Collected: 06/28/25
Time Specimen was Collected: 16:31
06/28/25 16:39
US Abdomen Complete/Upper Urgent
Comment:
Reason For Exam: elevated lfts
06/28/25 16:54
Ehrlichia/Anaplasma by PCR [S] Urgent
Lyme Progressive Urgent
Blood Parasites Urgent
TD Source: Blood/Venous
Specimen Description:
06/28/25 18:00
Ciprofloxacin 400 mg/[id number] [Cipro 400 mg] 200 ml IV NOW
06/28/25 19:51
Admit/Transfer Patient As Directed
Co-Sign Provider:
Level of Care: Inpatient admission
Assign to:: Medical/Surgical
Physician / Group: Matty
Diagnosis: UTI
Reason for Hospitalization: weakness, inability to walk
Expected length of stay greater than two midnights?: Yes
ELOS- Estimated Length of Stay in days: 2
I certify the patient meets the requirements for IP care: Yes
PRN Pain Medication Management As Directed
May give lesser potent ordered pain med per pt: Yes
preference::
Protocol:: Medication orders for pain may be administered in a
manner that supports deferring to patient preference
when the pt is:
- Requesting an ordered lesser potent pain medication.
Least to most potent pain medications are defined
as: acetaminophen < NSAID < tramadol < opioids
(morphine, oxycodone, hydromorphone).
- Requesting a lesser dose of the same medication IF
ORDERED.
- Requesting a less intrusive route of administration
if both routes are prescribed by the provider (PO <
IV).
06/28/25 19:52
Code Status As Directed
Resuscitation Status: Full Code
06/28/25 20:55
0.9% Sodium Chloride 1000 ml [Nss] 1,000 ml IV 80 mls/hr
Acetaminophen [Tylenol] 650 mg PO Q4HPRN PRN
Bisacodyl [Dulcolax] 10 mg RECTAL [id number] PRN
Docusate W/Senna [Senokot-S] 1 tablet PO BIDPRN PRN
Polyethylene Glycol Powder [Miralax] 17 grams PO DAILYPRN PRN
06/28/25 20:55
MR Mrcp Without Routine
Comment:
Reason For Exam: high lipase and transaminitis, eval teresa obstructio
Recent pill cam endoscopy?: No
Activity As Directed
Activity Level: With Assistance
Intake/ Output As Directed
Frequency: Per unit guidelines
Orthostatic Vital Signs As Directed
Orthostatic VS Frequency: Daily
Vital Signs As Directed
Frequency: Per unit guidelines
Pulse Ox/spot Check [RESP] Routine
Quantity: 1
Pt Eval And Treat Routine
Activity Level: With Assistance
DX Deep Vein Thrombosis Video Routine
06/29/25 Breakfast
Clear Liquid
At Your Request: Full Participation
Ciprofloxacin 400 mg/[id number] [Cipro 400 mg] 200 ml IV Q12H
06/29/25 06:40
Complete Blood Count/No Diff IN AM
Hepatitis A IgM Antibody IN AM
Hepatitis B Core Ab, IgM IN AM
Hepatitis B Surface Antibody IN AM
Hepatitis B Surface Antigen IN AM
Hepatitis C Antibody IN AM
Lipase IN AM
Magnesium IN AM
TSH Reflex To Free T4 IN AM
06/29/25 08:00
Aspirin Low Dose EC [Aspir Low (Enteric Coated)] 81 mg PO DAILY
Atorvastatin [Lipitor] 10 mg PO DAILY
Metoprolol Xl [Toprol Xl] 12.5 mg PO DAILY
Primidone [Mysoline] 25 mg PO DAILY
06/29/25 18:00
Enoxaparin Sodium [Lovenox] 40 mg SC QPM
Abnormal Lab Results
06/28/25 06/28/25
13:07 16:33
RBC 3.73 L 10^6/uL
(4.20-5.40)
Hct 34.6 L %
(37.0-47.0)
MCH 32.4 H pg
(27.0-31.0)
Abs Immat Gran (auto) 0.1 H 10^3/uL
(0-0.05)
Absolute Neuts (auto) 8.8 H 10^3/uL
(1.4-6.5)
Absolute Lymphs (auto) 0.8 L 10^3/uL
(1.2-3.4)
Absolute Monos (auto) 1.1 H 10^3/uL
(0.1-0.6)
Immature Gran % 0.7 H %
(0-0.5)
Neutrophils % 81.9 H %
(42.2-75.2)
Lymphocytes % 7.2 L %
(20.5-51.1)
Monocytes % 9.9 H %
(1.7-9.3)
Sodium 132 L mmol/L
(135-145)
Carbon Dioxide 21 L mmol/L
(22-30)
BUN 28 H mg/dl
(7-17)
Glucose 153 H mg/dl
(70-99)
AST 369 H U/L
(14-36)
ALT 169 H U/L
(0-35)
Lipase 334 H U/L
(23-300)
Urine Ketones 2+ A
(Negative)
Ur Occult Blood Reflex 3+ A
(Negative)
Urine Bilirubin 1+ A
(Negative)
Urine Urobilinogen 2+ A
(Neg - 1+)
Leukocyte Esterase Rfl 1+ A
(Negative)
Urine RBC 3-6 A /HPF
(0-2)
Urine WBC (Reflex) 11-15 A /HPF
(0-5)
Urine Bacteria (Reflex) Many A
(Negative)
Urine Albumin (Reflex) 3+ A
(Neg - Trace)
06/28/25 13:07
06/28/25 13:07
Vital Signs
Initial and Last Documented VS:
Initial Vital Signs
Temp Pulse Resp BP Pulse Ox
99.0 F 136 20 126/69 92
06/28/25 12:53 06/28/25 12:53 06/28/25 12:53 06/28/25 12:53 06/28/25 12:53
Last Documented Vital Signs
Temp Pulse Resp BP Pulse Ox
97.7 F 108 16 108/68 95
06/29/25 08:34 06/29/25 16:28 06/29/25 16:28 06/29/25 16:28 06/29/25 16:28
<KAMARI Alcaraz - Last Filed: 06/29/25 18:41>
MDM/Problems Addressed
Differential Diagnosis Includes:
not limited to: URI, COVID, influenza, dehydration UTI
MDM/Problems Addressed:
As documented patient is an 85-year-old female with complaints of mostly fatigue and decreased appetite for the past 5 days feels very weak complains of dark urine. Patient found to have a low-grade temperature here of 99 with a normal white count
patient is dry on exam and has elevated BUN of 28 LFTs are elevated including AST and ALT with normal bilirubin. Abdomen is soft she has no abdominal tenderness will check tickborne illness and also order ultrasound lipase.
COVID flu negative. Ultrasound and urine pending at this time. Patient will likely need admission for weakness. fluid infusing. case d/ c w/ ED physician.
1650:Care of pt at this time transfered to BRIGITTE Nicholas
1710: Patient urine consistent with UTI will order antibiotic. patient reports she almost from allergic reaction'to penicillin' as a child. will order cipro
<KAMARI Alcaraz - Last Filed: 06/29/25 18:41>
*Pulse Oximetry
SaO2: 92
Oxygen Mode of Delivery: Room air
<Oscar Caruso PA-C - Last Filed: 06/28/25 19:19>
*Pulse Oximetry
Patient hypoxic: no
*Critical Care Note
Total Time (30-74mins, 75-104mins- exclusive of procedures): Not Applicable
<Oscar Caruso PA-C - Last Filed: 06/28/25 19:19>
Update Note
Update Note:
Received care of patient upon signout pending abdominal ultrasound. Patient here with profound weakness getting worse over several days. Found to have UTI here given Cipro. Ultrasound shows cholelithiasis and sludge without signs of
cholecystitis. Patient too weak to go home. Will admit for weakness in the setting of UTI
ED Attending Note
<KAMARI Alcaraz - Last Filed: 06/29/25 18:41>
-
Portions of this chart may have been created with voice recognition software.� Occasional wrong word or��sound alike� substitutions may have occurred due to the inherent limitations of voice recognition software.
<Rahul Levine MD - Last Filed: 06/28/25 17:06>
ED Attending Note
Patient seen and examined by attending physician: Yes
I performed the substantive portion of visit, reviewed & personally made and approve the management plan that is documented in note by myself or SUSI.: Yes
ED Attending Note:
Fever chills weakness x 4 to 5 days. General malaise. Very weak at home. Difficulties with ADLs at home secondary to weakness. Dark urine. No cough no congestion no abdominal pain
On exam patient is nontoxic elderly and frail generally weak. Mildly tachycardic.
Lungs are clear and equal. Heart tachycardic and regular no murmur. Abdomen soft and nontender. Warm and dry. Perfusing well.
Impression is general weakness fatigue tachycardia along with elevated transaminases. Ultrasound pending. Urinalysis with a possible UTI. Will admit for antibiotics
Discharge Plan
Departure
Patient Disposition: Admit
Date of Disposition: 06/28/25
Time of Disposition: 19:19
Presentation/result/management discussed w/ accepting MD/DO: Hospitalist
Discharge Problem:
Acute UTI
Interventions
Interventions:
*Risk Screen - Suicide Last Done: 06/28/25 14:15
*General Assessment Last Done: 06/28/25 12:53
*Neglect/Abuse Screening Last Done: 06/28/25 14:15
*ED- Fall Risk Assessment Last Done: 06/28/25 14:15
*ED COVID-19 Vaccine History Last Done: 06/28/25 14:15
*Nursing Disposition Last Done: 06/28/25 21:07
ED- Neurological Assessment Last Done: 06/28/25 16:44
ED-Skin Assessment Last Done: 06/28/25 16:44
Discharge Date and Time
Discharge Date/Time: 06/28/25 21:08
[2025-06-28] MEDS: NSS 500 IV (16:20)
[2025-06-28 16:36] LABS: COVID-19 Antigen Negative (Negative)
[2025-06-28 16:44] LABS: Urine Character Cloudy (Clear)
[2025-06-28 16:59] LABS: Urine Squamous Cell 0-2 /LPF (Few)
[2025-06-28 17:36] LABS: Lipase 334 U/L (23-300)
[2025-06-28] MEDS: CIPRO 400 MG 200 IV (18:16)
--- NOTE | 2025-06-28 19:24 | HPS.HSE ---
Family Physician
-
Family Physician: Stephan Ho
Chief Complaint
-
Fever
History of Present Illness
This is a 85-year-old female with past medical history significant for rheumatoid arthritis on emphysema, hypertension, anxiety presenting to the emergency department by family members with complaints of severe fatigue, decreased appetite over the
last 5 days.
According to family members providing history the patient had a rapid decline starting about 5 days ago. She does complain of generalized aches, decreased appetite, decreased p.o. intake. She also reports a headache and some generalized shakes as
well. She had an episode of watery stool this morning but has not had or prior episodes of diarrhea melena or hematochezia. She denies any specific abdominal pain and nausea or vomiting. She denies any cough. She denies dyspnea on exertion or
shortness of breath. She denies any chest pain. She denies any palpitations. She usually visits her spouse was at but patient denies any specific sick contacts.
She denies any URI symptoms. She also denies any urinary symptoms.
In the Emergency Department patient had a temp of 99, blood pressure was 127/60 with a pulse rate of 109 and oxygen saturation of 93% on room air. Chest x-ray consistent with COPD but shows no acute infiltrates or pulmonary edema. ECG shows sinus
tachycardia at a rate of 137. CBC is unremarkable with a white count of 10.7 hemoglobin 12.1 and a plate count of 273. Electrolytes were all within normal limits with normal BUN and creatinine. LFTs showed significant elevations in AST to 369,
ALT 11/03/1969 and a lipase of over 300.
UA history moderately positive with 1+ leukocyte esterase, few WBCs BCs and a few bacteria
Ultrasound shows cholelithiasis and gallbladder sludge without findings suggestive of acute cholecystitis. The common bile duct is of top normal caliber.
Medical History
Past Medical History
Past Medical History: Reports Other
Additional Past Medical History:
Rheumatoid arthritis
Polymyalgia
Essential hypertension
History of panic attacks/agoraphobia
Anxiety
Migraines
Past Surgical History: Reports Other
Additional Past Surgical History:
Hysterectomy
Right inguinal hernia repair
Left C7-T1 IL LYNN 03/10/22
Left C7-T1 ILESI 04/19/22
Social History
Tobacco: Non-smoker
Alcohol: None
Drug: None
Family History
Family History: Not pertinent
Allergies / Home Medications
Allergies reflects when Allergies were last updated in [employer].
Home Medications with original date entered in [employer]
Allergy/Medication List:
Allergies
Allergy/AdvReac Type Severity Reaction Status Date / Time
droperidol (From [employer]) Allergy Unknown Verified 06/28/25 12:53
fentanyl (Fentanyl) Allergy Unknown Verified 06/28/25 12:53
fentanyl citrate (From Allergy Unknown Verified 06/28/25 12:53
Innovar)
Penicillins Allergy Unknown Verified 06/28/25 12:53
Home Medications
atorvastatin 10 mg tablet 10 mg PO DAILY 05/26/18
primidone 50 mg tablet 25 mg PO DAILY 05/26/18
aspirin 81 mg tablet,delayed release 81 mg PO DAILY 06/28/25
calcium 500 mg (as carbonate)-vitamin D3 10 mcg (400 unit) tablet (Calcium 500 + D) 1 tab PO BID 06/28/25
infliximab 100 mg intravenous solution (Remicade) 100 mg IV Q8W 06/28/25
metoprolol succinate 25 mg tablet,extended release 24 hr (Toprol XL) 12.5 mg PO DAILY 06/28/25
Review of Systems
-
Constitutional: Reports Fatigue and Chills
EENT: Reports No Symptoms
Respiratory: Reports No Symptoms
Cardiac: Reports No Symptoms
Abdomen/GI: Reports No Symptoms
: Reports No Symptoms
Musculoskeletal: Reports No Symptoms
Skin: Reports No Symptoms
Neurological: Reports No Symptoms
Endocrine: Reports No Symptoms
Hematologic/Lymphatic: Reports No Symptoms
Psych: Reports No Symptoms
Physical Exam
Vital Signs
Vital Signs
Temp Pulse Resp BP Pulse Ox
99.0 F 109 23 127/63 93
06/28/25 12:53 06/28/25 17:15 06/28/25 17:15 06/28/25 17:00 06/28/25 17:00
Physical Exam
General: No Apparent Distress and Other ( frail-appearing)
HEENT: NormoCephalic, Moist mucous membranes and Atraumatic
Respiratory: Clear
Cardiac: S1/S2 and Regular Rhythm; No Murmur or Rub
GI: Soft, Non Tender, Non Distended and Normal Bowel Sounds; No Organomegaly
Rectal: Deferred by Provider
Musculoskeletal: No Clubbing, No Cyanosis and No Edema
Skin: No Rash
Neuro: AO x 3 and Nonfocal/grossly intact
Laboratory Results
-
06/28/25 13:07
06/28/25 13:07
Laboratory Results
Lactic Acid 1.6 mmol/L (0.7-2.0) 06/28/25 13:07
Total Bilirubin 0.7 mg/dl (0.2-1.3) 06/28/25 13:07
AST 369 U/L (14-36) H 06/28/25 13:07
ALT 169 U/L (0-35) H 06/28/25 13:07
Alkaline Phosphatase 85 U/L (38-126) 06/28/25 13:07
Lipase 334 U/L (23-300) H 06/28/25 13:07
Data Reviewed
-
Ultrasound: Report Reviewed by me
Medical Tests (Nuc Med, Echo, EKG etc): Image Personally Visualized and interpreted
Lab Data: Labs Reviewed by me
Old Records: Reviewed
Impression/Plan
-
IMPRESSION:
85-year-old female with past medical history of rheumatoid arthritis, hypertension and hyperlipidemia presenting to the emergency department with 5 days of generalized weakness, decreased appetite and failure to thrive. She essentially has no
specific symptoms. She does not appear to have a specific infection except for positive UA. She also has transaminitis for unexplained etiology.
PLAN:
Urinary tract infection -possible urinary tract infection although patient denies any specific symptoms. However given her weakness lethargy and failure to thrive could possibly be the explanation. No prior cultures.
- Admit to [facility] [place]
- Blood and urine culture sent
-Parasite panel sent
-Negative COVID, negative flu
-Started on Cipro likely based on personal history of allergies to penicillin and family history of allergies to cephalosporin, will continue Cipro for now pending cultures
-Gentle hydration
-Orthostatic vital signs in a.m.
-Gentle hydration overnight
Transaminitis -no recent alcohol use, no history of alcohol use. No Tylenol use. No recent travel. No known sick contact. No abdominal symptoms. Patient does have stones in the gallbladder as well as elevated lipase which is suggestive of
likely an episode of choledocholithiasis with the stone that has already transited. Possibly to the original etiology of her symptoms. She does not seem to have any evidence of cholangitis at this time.
-Trend LFTs
-Will check MRCP to rule out ongoing obstruction
-GI consultation
-Acute hep panel in a.m.
-Lipid profile
Tachycardia -patient with chronic tachycardia on ECGs since 2021. Suspect this is from a generalized anxiety disorder.
-Check for dehydration, IV fluids, orthostatic vital signs
-Continue metoprolol
-Check TSH
DVT prophylaxis�Lovenox subcu
CODE STATUS�full code
--- NOTE | 2025-06-28 21:00 | PTCARENOTE ---
Pt arrived to unit from ED via stretcher. Ax1 to ambulate from stretcher to bed. A&Ox3. Oriented to unit. Bed in lowest position and call light within reach. Plan of care ongoing.
[2025-06-28] MEDS: NSS 1000 IV (21:39)
[2025-06-29] MEDS: TYLENOL 650 MG PO (04:49)
[2025-06-29] MEDS: CIPRO 400 MG 200 IV (04:53)
[2025-06-29 07:33] LABS: Hematocrit 29.3 % (37.0-47.0); Hemoglobin 9.9 g/dL (12.0-16.0); Mean Corp Hgb Conc. 33.8 g/dL (33.0-37.0); Mean Corpuscular Volume 95.1 fL (81.0-99.0); Platelet Count 240 10^3/uL (130-400); Red Cell Dist. Width 12.7 % (11.5-14.5)
[2025-06-29 08:20] LABS: ALT (SGPT) 140 U/L (0-35); AST (SGOT) 257 U/L (14-36); Albumin 3.1 g/dl (3.5-5.0); Alkaline Phosphatase 64 U/L (38-126); Blood Urea Nitrogen 25 mg/dl (7-17); Calcium 8.1 mg/dl (8.4-10.2); Carbon Dioxide 23 mmol/L (22-30); Chloride 103 mmol/L (98-107); Estimated Creatinine Clearance 38 ml/min; Glucose 142 mg/dl (70-99); Lipase 371 U/L (23-300); Magnesium 2.2 mg/dl (1.6-2.3); Potassium 3.7 mmol/L (3.5-5.1); Sodium 133 mmol/L (135-145); Total Protein 6.1 g/dl (6.3-8.2); eGFR > 60.00
[2025-06-29 08:34] VITALS: BP 106/53
[2025-06-29] MEDS: MYSOLINE 25 MG PO (09:33)
[2025-06-29] MEDS: LIPITOR 10 MG PO (09:34)
[2025-06-29] MEDS: ASPIR LOW (ENTERIC COATED) 81 MG PO (09:34)
[2025-06-29] MEDS: TOPROL XL 12.5 MG PO (09:34)
--- NOTE | 2025-06-29 11:16 | CON.GI ---
Consultation
-
Date/Time Consultation Requested: 06/29/2025
Date/Time Consultation Performed: 06/29/2025
Requesting Provider: Tasha Eastman
Performing Provider:
Reason for Consultation: abnormal LFTS. GS
Medical History
Chief Complaint / HPI
Chief Complaint: fatigue, decreased PO intake
History of Present Illness:
This is a 85-year-old female with past medical history of rheumatoid arthritis on Remicade, Polymyalgia, Essential hypertension, History of panic attacks/agoraphobia, Anxiety, Migraines who since Tuesday has fatigue and decreased oral take which
prompted the ER visit. She says she has been feeling overall malaise since Tuesday with decreased oral intake and was having arthralgias and myalgias and daughter brought her into the emergency room. She has had decreased oral intake for the past 1
to 2 years she says her who she has been to for 57 years is in a [facility] and she visits him daily and spends hours there and sometimes skips a meal or 2. She has lost about 8 pounds over the past couple of months. She denies
any fevers or chills. No nausea or vomiting. She also denies any abdominal pain currently. Her bowel movements are pretty regular no rectal bleeding or melena. She also denies any symptoms of reflux or dysphagia. She was noted to have a UTI
since admission and has been started on antibiotics cipro and also on imaging was noted to have gallstones but no cholecystitis and mildly dilated CBD with abnormal LFTs transaminitis. She says her last colonoscopy was about 5 years ago but did not
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 Her hemoglobin also decreased after hydration from 12.1 on admission to 9.9 but currently has no bleeding. She also denies any recent change in medications no recent antibiotic use. She
also denies any recent travel or exposure to sick contacts.
Past Medical History
Past Medical History: Other (Rheumatoid arthritis, Polymyalgia, Essential hypertension, History of panic attacks/agoraphobia, Anxiety, Migraines)
Past Surgical History: Other (Hysterectomy, Right inguinal hernia repair, Left C7-T1 IL LYNN 03/10/22, Left C7-T1 ILESI 04/19/22)
Social History
Tobacco: Non-Smoker
Alcohol: None
Drug: None
Personal:
Family History
Family History: Reviewed & Not Pertinent
Allergies / Home Medications
Allergy/AdvReac Type Severity Reaction Status Date / Time
droperidol (From [employer]) Allergy Unknown Verified 06/28/25 12:53
fentanyl (Fentanyl) Allergy Unknown Verified 06/28/25 12:53
fentanyl citrate (From Allergy Unknown Verified 06/28/25 12:53
Innovar)
Penicillins Allergy Unknown Verified 06/28/25 12:53
�Medication �Instructions �Recorded
atorvastatin 10 mg tablet 10 mg PO DAILY High Cholesterol 05/26/18
primidone 50 mg tablet 25 mg PO DAILY 05/26/18
aspirin 81 mg tablet,delayed 81 mg PO DAILY Blood Clot 06/28/25
release Prevention/Tx
calcium 500 mg (as 1 tab PO BID Supplement 06/28/25
carbonate)-vitamin D3 10 mcg (400
unit) tablet (Calcium 500 + D)
infliximab 100 mg intravenous 100 mg IV Q8W 06/28/25
solution (Remicade)
metoprolol succinate 25 mg 12.5 mg PO DAILY Heart Failure 06/28/25
tablet,extended release 24 hr
(Toprol XL)
Review of Systems
-
All other systems: A 12 pt ROS was Negative except as stated above in HPI
Vital Signs
Temp Pulse Resp BP Pulse Ox
97.7 F 82 16 106/53 96
06/29/25 08:34 06/29/25 08:34 06/29/25 08:34 06/29/25 08:34 06/29/25 08:34
Physical Exam
Exam
General: No Apparent Distress
HEENT: Normocephalic
Respiratory: Clear
Cardiac: S1/S2
GI: Soft, Non Tender, Non Distended and Normal Bowel Sounds
Musculoskeletal: No Clubbing
Skin: Warm
Neuro: Awake, Alert and Oriented
Psych: Calm
Results
WBC 7.4 10^3/uL (4.8-10.8) 06/29/25 06:40
Hgb 9.9 g/dL (12.0-16.0) L 06/29/25 06:40
Hct 29.3 % (37.0-47.0) L 06/29/25 06:40
MCV 95.1 fL (81.0-99.0) 06/29/25 06:40
Plt Count 240 10^3/uL (130-400) 06/29/25 06:40
Absolute Neuts (auto) 8.8 10^3/uL (1.4-6.5) H 06/28/25 13:07
Sodium 133 mmol/L (135-145) L 06/29/25 06:40
Potassium 3.7 mmol/L (3.5-5.1) 06/29/25 06:40
Chloride 103 mmol/L (98-107) 06/29/25 06:40
Carbon Dioxide 23 mmol/L (22-30) 06/29/25 06:40
BUN 25 mg/dl (7-17) H 06/29/25 06:40
Creatinine 0.7 mg/dL (0.6-1.0) 06/29/25 06:40
Calcium 8.1 mg/dl (8.4-10.2) L 06/29/25 06:40
Total Bilirubin 0.4 mg/dl (0.2-1.3) 06/29/25 06:40
AST 257 U/L (14-36) H 06/29/25 06:40
ALT 140 U/L (0-35) H 06/29/25 06:40
Alkaline Phosphatase 64 U/L (38-126) 06/29/25 06:40
Lipase 371 U/L (23-300) H 06/29/25 06:40
Diagnostic Image Results:
06/28/2025 US abdomen
IMPRESSION:
Cholelithiasis and gallbladder sludge. No secondary findings to suggest acute cholecystitis.
Top normal caliber of the common bile duct.
06/28/2025 CXR
IMPRESSION:
Pulmonary findings suggest changes of COPD, unchanged from prior. There is no evidence of acute pneumonia
Prior GI Procedures:
EGD:none
Colonoscopy: 5 years ago
Assessment / Plan
-
1. Symptoms of malaise with arthralgias, myalgias, fatigue and transaminitis and diagnosed with a UTI and started on ciprofloxacin. Unclear if symptoms are related to the UTI or a possible viral syndrome especially since she is immunocompromised
and is on infliximab for her RA. She was tested for COVID and was negative. Ultrasound showed gallstones but no cholecystitis and no ductal dilatation. MRI with MRCP is pending. Will hold her statin for now. her viral hepatitis serologies are
currently pending. Will restart her on diet after the MRI. Continue to trend her LFTs. If there is evidence of possible CBD stone then will need ERCP but I think it is less likely she currently has no abdominal pain.
Data Reviewed
-
Ultrasound: Report Reviewed by me
-
-
Thank you for consultation and allowing me to participate in the patient's care. Please call the [facility] physician during the after hours with any questions or concerns.
--- NOTE | 2025-06-29 11:41 | W.PN.HOSP.TC ---
Today's Communication/Plan
-
Continue with fluids
Diet per GI
Await MRCP
Discontinue antibiotics
Assessment / Plan
Assessment / Plan
General: No Apparent Distress and Other ( frail-appearing)
HEENT: NormoCephalic, Moist mucous membranes and Atraumatic
Respiratory: Clear
Cardiac: S1/S2 and Regular Rhythm; No Murmur or Rub
GI: Soft, Non Tender, Non Distended and Normal Bowel Sounds; No Organomegaly
Rectal: Deferred by Provider
Musculoskeletal: No Clubbing, No Cyanosis and No Edema
Skin: No Rash
Neuro: AO x 3 and Nonfocal/grossly intact
IMPRESSION:
85-year-old female with past medical history of rheumatoid arthritis, hypertension and hyperlipidemia presenting to the emergency department with 5 days of generalized weakness, decreased appetite and failure to thrive. She essentially has no
specific symptoms. She does not appear to have a specific infection except for positive UA. She also has transaminitis for unexplained etiology.
PLAN:
Weakness, lethargy and decreased appetite, loose bowel movement suspected viral infection
- Blood parasite negative urine culture with no growth
-Negative COVID, negative flu
- Urine culture no growth. Discontinue antibiotics.
-Gentle hydration
-Orthostatic vital signs
Transaminitis -no recent alcohol use, no history of alcohol use. No Tylenol use. No recent travel. No known sick contact. No abdominal symptoms. Patient does have stones in the gallbladder as well as elevated lipase which is suggestive of
likely an episode of choledocholithiasis with the stone that has already transited. Possibly to the original etiology of her symptoms. She does not seem to have any evidence of cholangitis at this time.
-Trend LFTs
-Will check MRCP to rule out ongoing obstruction
-GI consultation
-Acute hep panel pending
-Lipid profile
Tachycardia -patient with chronic tachycardia on ECGs since 2021. Suspect this is from a generalized anxiety disorder.
-Check for dehydration, IV fluids, orthostatic vital signs
-Continue metoprolol
-TSH wnl.
Rheumatoid arthritis/polymyalgia,
- On Remicade as outpatient
DVT prophylaxis�Lovenox subcu
CODE STATUS�full code
Discussed with patient daughter at bedside in details
Anticipated Discharge: > 48 hours
Subjective/Interval History
-
Date of Service: June 29, 2025
Denies any abdominal pain. Denies any nausea. Denies any vomiting.
Had 1 loose bowel movement yesterday
Currently states she is hungry
Objective Data
-
Labs:
Laboratory Results
06/29/25
06:40
WBC 7.4
Hgb 9.9 L
Hct 29.3 L
Plt Count 240
Sodium 133 L
Potassium 3.7
Chloride 103
Carbon Dioxide 23
BUN 25 H
Creatinine 0.7
Glucose 142 H
Calcium 8.1 L
Total Bilirubin 0.4
AST 257 H
ALT 140 H
Alkaline Phosphatase 64
Vital Signs:
Vital Signs
Temp Pulse Resp BP Pulse Ox
97.7 F 82 16 106/53 96
06/29/25 08:34 06/29/25 08:34 06/29/25 08:34 06/29/25 08:34 06/29/25 08:34
I&O
06/28/25 06/29/25 06/30/25
06:59 06:59 06:59
Output Total 30 / 30
Balance -30 / -30
Data Reviewed
-
Total Time Spent with Patient (in minutes): 55
[2025-06-29 16:28] VITALS: BP 108/68
[2025-06-29 16:29] VITALS: BP 108/68; BP 119/63; BP 120/69; PULSE 108; PULSE 111; PULSE 116
[2025-06-29 16:54] LABS: Hepatitis B Surface Antigen Negative (Negative)
[2025-06-29 17:25] LABS: Hepatitis C Antibody Negative (Negative)
[2025-06-29] MEDS: LOVENOX 40 MG SC (17:47)
[2025-06-29 23:17] VITALS: BP 123/87
[2025-06-30 07:00] VITALS: BP 119/57
[2025-06-30 07:06] LABS: Hematocrit 31.0 % (37.0-47.0); Hemoglobin 10.5 g/dL (12.0-16.0); Mean Corp Hgb Conc. 33.9 g/dL (33.0-37.0); Mean Corpuscular Volume 94.8 fL (81.0-99.0); Nucleated Red Blood Cells % 0 %; Platelet Count 296 10^3/uL (130-400); Red Cell Dist. Width 12.6 % (11.5-14.5)
[2025-06-30 07:26] LABS: ALT (SGPT) 168 U/L (0-35); AST (SGOT) 233 U/L (14-36); Albumin 3.0 g/dl (3.5-5.0); Alkaline Phosphatase 74 U/L (38-126); Blood Urea Nitrogen 20 mg/dl (7-17); Calcium 8.2 mg/dl (8.4-10.2); Carbon Dioxide 26 mmol/L (22-30); Chloride 105 mmol/L (98-107); Estimated Creatinine Clearance 44 ml/min; Glucose 117 mg/dl (70-99); Potassium 3.5 mmol/L (3.5-5.1); Sodium 137 mmol/L (135-145); Total Protein 6.0 g/dl (6.3-8.2); eGFR > 60.00
[2025-06-30] MEDS: TOPROL XL 12.5 MG PO (08:50)
[2025-06-30] MEDS: MYSOLINE 25 MG PO (08:50)
[2025-06-30] MEDS: ASPIR LOW (ENTERIC COATED) 81 MG PO (08:51)
[2025-06-30 09:05] LABS: GGTP 28 U/L (12-43)
[2025-06-30 09:34] VITALS: BP 125/66; BP 130/73; BP 138/70; PULSE 103; PULSE 93; PULSE 94; O2SAT 97
--- NOTE | 2025-06-30 12:29 | W.PN.HOSP.TC ---
Addendum entered and electronically signed by Jorge Kimble MD 06/30/25 15:16:
MRCP with concern for infiltrative pneumonia. Patient with normal WBC count. No fevers. No cough. Afebrile. Suspected viral infiltrate. Check procalcitonin and if positive then can consider antibiotics.
Original Note:
Today's Communication/Plan
-
Await MRI of the abdomen. If positive for CBD obstruction may require ERCP
GI recs
Monitor for diet tolerance
Assessment / Plan
Assessment / Plan
General: No Apparent Distress and Other ( frail-appearing) sitting in chair
HEENT: NormoCephalic, Moist mucous membranes and Atraumatic
Respiratory: Clear
Cardiac: S1/S2 and Regular Rhythm; No Murmur or Rub
GI: Soft, Non Tender, Non Distended and Normal Bowel Sounds; No Organomegaly
Rectal: Deferred by Provider
Musculoskeletal: No Clubbing, No Cyanosis and No Edema
Skin: No Rash
Neuro: Awake. Nonfocal/grossly intact
IMPRESSION:
85-year-old female with past medical history of rheumatoid arthritis, hypertension and hyperlipidemia presenting to the emergency department with 5 days of generalized weakness, decreased appetite and failure to thrive. She essentially has no
specific symptoms. She does not appear to have a specific infection except for positive UA. She also has transaminitis for unexplained etiology.
PLAN:
Weakness, lethargy and decreased appetite, loose bowel movement suspected viral infection
- Blood parasite negative.
-Negative COVID, negative flu
- Urine culture no growth. Discontinue antibiotics.
- Tickborne studies ordered on admission still pending.
-Orthostatic vital signs
Transaminitis -no recent alcohol use, no history of alcohol use. No Tylenol use. No recent travel. No known sick contact. No abdominal symptoms. Patient does have stones in the gallbladder as well as elevated lipase which is suggestive of
likely an episode of choledocholithiasis with the stone that has already transited. Possibly to the original etiology of her symptoms. She does not seem to have any evidence of cholangitis at this time.
-Trend LFTs. Remains elevated. GGT normal. Direct bili normal. T. bili normal.
-MRCP pending for today.
-GI consultation
-Acute hep panel nonreactive
- Monitor for diet tolerance.
Tachycardia -patient with chronic tachycardia on ECGs since 2021. Suspect this is from a generalized anxiety disorder.
- Improved
-Continue metoprolol
-TSH wnl.
Rheumatoid arthritis/polymyalgia,
- On Remicade as outpatient
DVT prophylaxis�Lovenox subcu
CODE STATUS�full code
Discussed with patient daughter at bedside in details
PT recs SNF versus home health
Anticipated Discharge: Within 24 hours
Subjective/Interval History
-
Date of Service: June 30, 2025
Sitting in chair. Awaiting for MRI
No overnight events
Objective Data
-
Labs:
Laboratory Results
06/30/25
06:36
WBC 7.6
Hgb 10.5 L
Hct 31.0 L
Plt Count 296 D
Sodium 137
Potassium 3.5
Chloride 105
Carbon Dioxide 26
BUN 20 H
Creatinine 0.6
Glucose 117 H
Calcium 8.2 L
Total Bilirubin 0.3
AST 233 H
ALT 168 H
Alkaline Phosphatase 74
Vital Signs:
Vital Signs
Temp Pulse Resp BP Pulse Ox
98.0 F 84 18 119/57 96
06/30/25 07:00 06/30/25 07:00 06/30/25 07:00 06/30/25 07:00 06/30/25 07:00
I&O
06/29/25 06/30/25 07/01/25
06:59 06:59 06:59
Output Total 30 / 30
Balance -30 / -30
[2025-06-30 14:05] VITALS: BMI 16.9
--- NOTE | 2025-06-30 14:56 | W.PN.GI.CBS2 ---
Today's Communication / Plan
-
Advance diet to regular diet
Trend LFTs
Added MiraLAX and senna
Assessment / Plan
-
Symptoms of malaise with arthralgias, myalgias, fatigue and transaminitis and initially diagnosed with a UTI and started on ciprofloxacin but urine cultures were negative and was taken off antibiotics. Most likely from viral syndrome in a patient
who is immunocompromised on Remicade for RA as outpatient
possible Tickborne illness- studies pending
Flu and COVID-negative, chest x-ray showed COPD No obvious pneumonia
Blood smear negative for parasites
Will hold her statin for now
viral hepatitis serologies negative
Continue to trend her LFTs.
Ultrasound showed gallstones and MRI with MRCP also shows gallstones, no acute cholecystitis and no choledocholithiasis noted and currently also has no abdominal pain
She feels constipated and is mildly distended and does have ileus noted on MRI will start her on senna and MiraLAX
Subjective
Subjective
Date of Service: June 30, 2025
Still has fatigue with decreased appetite. No cough, no headache, no fever. MRI shows gallstones no ductal dilatation but also shows questionable pneumonia and also colonic ileus. She feels bloated but no abdominal pain no bowel movement yet Today
but did she did have a small bowel movement yesterday
Objective
Data Reviewed
Laboratory Data:
Laboratory Results
06/30/25 06:36
06/30/25 06:36
Laboratory Results
Magnesium 2.2 mg/dl (1.6-2.3) 06/29/25 06:40
Total Bilirubin 0.3 mg/dl (0.2-1.3) 06/30/25 06:36
AST 233 U/L (14-36) H 06/30/25 06:36
ALT 168 U/L (0-35) H 06/30/25 06:36
Alkaline Phosphatase 74 U/L (38-126) 06/30/25 06:36
Lipase 371 U/L (23-300) H 06/29/25 06:40
Laboratory Tests
06/29/25
06:40
Hepatitis A IgM Ab Negative
Hep Bs Antigen Negative
Hep Bs Antibody Negative
Hep B Core IgM Ab Negative
Hepatitis C Antibody Negative
06/30/2025 MRI with MRCP
IMPRESSION: Cholelithiasis. There are are no findings to suggest acute cholecystitis. No evidence for biliary ductal dilation. No evidence for bile duct calculus.
Confluent area of increased T2 and STIR signal within the visualized left lower lobe of the lung, and appearance is highly suggestive of pneumonia. Minimal associated left pleural effusion.
Mild to moderate gaseous distention of the colon as described.
Vital Signs and I&O:
Vital Signs
Temp Pulse Resp BP Pulse Ox
98.0 F 84 18 119/57 96
06/30/25 07:00 06/30/25 07:00 06/30/25 07:00 06/30/25 07:00 06/30/25 07:00
I&O
06/29/25 06/30/25 07/01/25
06:59 06:59 06:59
Output Total 30 / 30
Balance -30 / -30
Physical Exam
Physical Exam
Cardiology: Normal Sinus Rhythm
Pulmonary: Clear
GI: Soft, Distended ( mildly distended), Non Tender and Normal Bowel Sounds
[2025-06-30 15:00] VITALS: BP 129/61
--- NOTE | 2025-06-30 16:12 | CM ---
CM met with Linda who was admitted from home after she wasn't feeling well and spent 5 days in bed and did not eat anything during this time.
Pt lives alone in a 1 story home with 1 entry step. At baseline she reports being (I) amb and adls, visits her every day at [facility].
Pt was evaluated by therapy - recommendation is SNF vs. home care (if pt is willing to stay with her children which she is not fond of considering).
Plan: Follow up with patient regarding discharge plan.
[2025-06-30] MEDS: LOVENOX 40 MG SC (17:00)
[2025-06-30] MEDS: MAALOX 30 ML PO (17:18)
[2025-06-30 23:25] VITALS: BP 134/64
[2025-07-01 07:00] VITALS: BP 112/54
[2025-07-01 07:18] LABS: Hematocrit 30.5 % (37.0-47.0); Hemoglobin 10.5 g/dL (12.0-16.0); Mean Corp Hgb Conc. 34.4 g/dL (33.0-37.0); Mean Corpuscular Volume 95.9 fL (81.0-99.0); Nucleated Red Blood Cells % 0 %; Platelet Count 374 10^3/uL (130-400); Red Cell Dist. Width 12.7 % (11.5-14.5)
[2025-07-01 07:29] LABS: ALT (SGPT) 133 U/L (0-35); AST (SGOT) 112 U/L (14-36); Albumin 3.0 g/dl (3.5-5.0); Alkaline Phosphatase 77 U/L (38-126); Blood Urea Nitrogen 14 mg/dl (7-17); Calcium 8.4 mg/dl (8.4-10.2); Carbon Dioxide 28 mmol/L (22-30); Chloride 103 mmol/L (98-107); Estimated Creatinine Clearance 44 ml/min; Glucose 126 mg/dl (70-99); Potassium 3.4 mmol/L (3.5-5.1); Sodium 138 mmol/L (135-145); Total Protein 6.1 g/dl (6.3-8.2); eGFR > 60.00
[2025-07-01 07:35] LABS: Procalcitonin 0.12 ng/ml (0.0-0.25)
[2025-07-01] MEDS: TOPROL XL 12.5 MG PO (08:12)
[2025-07-01] MEDS: ASPIR LOW (ENTERIC COATED) 81 MG PO (08:13)
[2025-07-01] MEDS: MYSOLINE 25 MG PO (08:13)
--- NOTE | 2025-07-01 08:54 | W.PN.GI.CBS2 ---
Documented by User: Odell Brice MD, Resident 07/01/25 11:12
Today's Communication / Plan
-
MRI reviewed no gallstone obstruction, mild colonic distention, possible LLB pneumonia
Transaminitis possibly in the setting of infectious illness, possible pneumonia on MRI
awaiting tickborne illness panel, awaiting medical input on possible pneumonia
Trend LFTs
Assessment / Plan
-
Symptoms of malaise with arthralgias, myalgias, fatigue and transaminitis and initially diagnosed with a UTI and started on ciprofloxacin but urine cultures were negative and was taken off antibiotics. Most likely from viral syndrome in a patient
who is immunocompromised on Remicade for RA as outpatient
possible Tickborne illness- studies pending
Flu and COVID-negative, chest x-ray showed COPD No obvious pneumonia, MRI with possible LLB pneumonia
Blood smear negative for parasites
Will hold her statin for now
viral hepatitis serologies negative
Continue to trend her LFTs, trending down
Ultrasound showed gallstones and MRI with MRCP also shows gallstones, no acute cholecystitis and no choledocholithiasis noted and currently also has no abdominal pain
She feels constipated and is mildly distended and does have ileus noted on MRI will start her on senna and MiraLAX
Subjective
Subjective
Patient was seen at beside with daughter. She reports a large volume of non bloody non melanotic diarrhea last night. She has had no abdominal pain, no fevers, no difficulty with urination, no vomiting with mild nausea, no shortness of breath. She
does report mild difficulty swallowing feeling like food is getting caught in her chest that resolves on its own. Discussed MRI results and hepatitis panel results. Date of Service: July 01, 2025
Objective
Data Reviewed
Laboratory Data:
Laboratory Results
07/01/25 06:38
07/01/25 06:38
Laboratory Results
Magnesium 2.2 mg/dl (1.6-2.3) 06/29/25 06:40
Total Bilirubin 0.5 mg/dl (0.2-1.3) 07/01/25 06:38
AST 112 U/L (14-36) H 07/01/25 06:38
ALT 133 U/L (0-35) H 07/01/25 06:38
Alkaline Phosphatase 77 U/L (38-126) 07/01/25 06:38
Lipase 371 U/L (23-300) H 06/29/25 06:40
Vital Signs and I&O:
Vital Signs
Temp Pulse Resp BP Pulse Ox
98.3 F 94 18 112/54 99
07/01/25 07:00 07/01/25 07:00 07/01/25 07:00 07/01/25 07:00 07/01/25 07:00
I&O
06/30/25 07/01/25 07/02/25
06:59 06:59 06:59
Intake Total 1080 / 1080
Balance 1080 / 1080
Physical Exam
Physical Exam
HEENT: Anicteric
Cardiology: S1 and Other (tachycardic)
Pulmonary: Other (decreased breath sounds on left, crackles on L)
GI: Soft, Non Distended, Non Tender and Normal Bowel Sounds
Extremities: No Edema

Documented by User: Niesha Goldberg MD 07/01/25 14:00
Objective
Data Reviewed
Laboratory Data:
Laboratory Results
07/01/25 06:38
07/01/25 06:38
Laboratory Results
Magnesium 2.2 mg/dl (1.6-2.3) 06/29/25 06:40
Total Bilirubin 0.5 mg/dl (0.2-1.3) 07/01/25 06:38
AST 112 U/L (14-36) H 07/01/25 06:38
ALT 133 U/L (0-35) H 07/01/25 06:38
Alkaline Phosphatase 77 U/L (38-126) 07/01/25 06:38
Lipase 371 U/L (23-300) H 06/29/25 06:40
Laboratory Tests
06/28/25
16:54
A. phagocytophilum (PCR) Not detected
Lyme Screen IgG & IgM Negative
E.chaffeensis DNA (PCR) Not detected
E. ewingii/canis (PCR) Not detected
E. muris-like DNA (PCR) Not detected
--- NOTE | 2025-07-01 12:50 | CM ---
CM met with pt and cindyr/Korin to review dc planning
SNF vs VN discussed
PAC lists provided
Pt requesting referrals to [facility] as spouse is in LTC there and [facility]
if not accepted to either facility, plan will be to dc to dtr's home with VN ([facility] is provider choice)
PASRR completed and referrals pending
Dtr's home- [address] [place] [id number]
First floor set up in [facility] with 1+threshold step to enter
Remicade due is approx 5 weeks.
Discharge Disposition- SNF vs dtr's home with VN
[2025-07-01 13:02] LABS: Lyme Antibody Screen, EIA Negative (Negative)
--- NOTE | 2025-07-01 13:47 | W.PN.HOSP.TC ---
Today's Communication/Plan
-
Add Protonix
Replete potassium
Check magnesium
PT/OT
Assessment / Plan
Assessment / Plan
Gen-AAOx3, NAD, cachectic
HEENT-NC, AT, anicteric, clear oral mm
Neck-supple
CV-reg, no M, +S1/S2
Lungs-clear B/L
Abd-soft, NT, ND
Ext-no edema
Musculoskeletal-no cyanosis, clubbing
Skin-warm and dry
Neuro-grossly non-focal
Psych-calm, cooperative
Generalized weakness -unclear if infectious etiology versus other. Clinically improving overall, feeling less weak but not back to baseline yet. Orthostatic vitals negative.
No obvious infection clinically. No evidence of pneumonia clinically despite MRCP findings. Specifically, she denies shortness of breath, cough, fever or chills.
No fevers in the hospital. WBC count normal. Procalcitonin 0.12.
Transaminitis -unclear etiology. Atorvastatin on hold.
Viral hepatitis panel negative.
Blood parasite smear negative.
Ultrasound and MRCP consistent with cholelithiasis, no evidence of choledocholithiasis. No evidence of cholecystitis.
Hypokalemia -will replete. Check magnesium.
GERD -complaining of esophageal discomfort, acid reflux after swallowing. Will start Protonix.
Tachycardia -patient with chronic tachycardia on ECGs since 2021. Suspect this is from a generalized anxiety disorder.
- Improved
-Continue metoprolol
-TSH wnl.
Normocytic anemia -likely chronic inflammatory anemia from underlying rheumatoid arthritis. Hemoglobin stable and at baseline.
Rheumatoid arthritis/polymyalgia,
- On Remicade as outpatient
DVT prophylaxis�Lovenox subcu
CODE STATUS�full code
Dispo -anticipate discharge to SNF hopefully tomorrow if stable. Patient and daughter agreeable to SNF. Updated case management.
Discussed with patient daughter at bedside in details
PT recs SNF versus home health
Anticipated Discharge: Within 24 hours
Subjective/Interval History
-
Date of Service: July 01, 2025
Patient seen and examined, overall feeling better with less fatigue. Now having esophageal discomfort with swallowing. Does not have any problems initiating swallowing.
Objective Data
-
Labs:
Laboratory Results
07/01/25
06:38
WBC 7.6
Hgb 10.5 L
Hct 30.5 L
Plt Count 374 D
Sodium 138
Potassium 3.4 L
Chloride 103
Carbon Dioxide 28
BUN 14
Creatinine 0.5 L
Glucose 126 H
Calcium 8.4
Total Bilirubin 0.5
AST 112 H
ALT 133 H
Alkaline Phosphatase 77
Vital Signs:
Vital Signs
Temp Pulse Resp BP Pulse Ox
98.3 F 94 18 112/54 99
07/01/25 07:00 07/01/25 07:00 07/01/25 07:00 07/01/25 07:00 07/01/25 07:00
I&O
06/30/25 07/01/25 07/02/25
06:59 06:59 06:59
Intake Total 1080 / 1080
Balance 1080 / 1080
Review of Systems
-
History Source: Patient
All other systems: Reviewed and negative
[2025-07-01] MEDS: KCL 40 MEQ PO (14:12)
[2025-07-01] MEDS: PROTONIX IV 40 MG IV (14:14)
[2025-07-01] MEDS: NSS (PRESERVATIVE FREE) 10 ML IV (14:14)
[2025-07-01 14:36] LABS: Magnesium 1.9 mg/dl (1.6-2.3)
[2025-07-01 15:00] VITALS: BP 138/72
[2025-07-01] MEDS: LOVENOX 40 MG SC (18:07)
[2025-07-01] MEDS: KCL 20 MEQ PO (19:51)
[2025-07-01] MEDS: PEPCID 40 MG PO (21:38)
[2025-07-01 22:57] VITALS: BP 116/68
[2025-07-02 07:32] VITALS: BP 121/66
--- NOTE | 2025-07-02 07:44 | PN.CDI ---
CDI
- -
CDI:
Physician Documentation Request
Admit Date: 06/28/25 20:09
Dear Doctor Darrian,
Patient admitted with generalized weakness.
06/30 Nutrition note, 'With weight loss of > 5% in month, < 75% estimated needs > 1 month and observed muscle and fat wasting pt meets AND/ASPEN criteria for severe protein calorie malnutrition of chronic illness.
Please provide in your note the diagnosis associated with the nutritional findings and your assessment:
Severe protein calorie malnutrition of chronic illness
Other (please specify)
[place] Criteria ([facility] Hospitalist 2017)
2 or more criteria must be present for either
non severe or severe malnutrition
Note that the criteria differs related to the
presence of an acute or chronic illness
Chronic Illness
Energy Intake Non Severe: <75% for >1 month
Severe: <75% for >1 month
Weight Loss Non Severe: 5% over 1 month
7.5% over 3 months
10% over 6 months
20% over 1 year
Severe: >5% over 1 month
>7.5% over 3 months
>10% over 6 months
>20% over 1 year
Body Fat Non Severe: Mild Loss
Severe: Severe Loss
Muscle Mass Non Severe: Mild Loss
Severe: Severe Loss
Fluid Accumulation Non Severe: Mild Accumulation
Severe: Moderate to severe
accumulation
Reduced [employer] Strength Non Severe: N/A
Severe: Measurably reduced
Use of terms such as suspected, likely, concern for, or probable (associated with a specific diagnosis that is being evaluated, monitored, or treated as if it exists) are acceptable and can be coded in the inpatient setting, when documented at the
time of discharge.
Thank you,
Juli SKAGGS,RN,CCDS
CDI Specialist
Available via [employer] text
Please use your independent medical judgment in providing your response.
--- NOTE | 2025-07-02 07:55 | PN.CDI ---
CDI
- -
CDI:
Physician Documentation Request
Admit Date: 06/28/25 20:09
Dear Doctor Darrian,
Patient admitted with generalized weakness.
Patient received IV NSS.
Na levels documented below:
Laboratory Tests
06/28/25 06/29/25 07/01/25
13:07 06:40 06:38
Sodium 132 L 133 L 138
Based on the above, could you clarify in the progress notes, the appropriate diagnosis, if significant, that supports the above abnormalities and additional evaluation, monitoring and/or treatment rendered:
Hyponatremia, now resolved
Insignificant abnormal lab findings
Other
Use of terms such as suspected, likely, concern for, or probable (associated with a specific diagnosis that is being evaluated, monitored, or treated as if it exists) are acceptable and can be coded in the inpatient setting, when documented at the
time of discharge.
Thank you,
Juli SKAGGS,RN,CCDS
CDI Specialist
Available via [employer] text
Please use your independent medical judgment in providing your response.
[2025-07-02] MEDS: KCL 20 MEQ PO (08:07)
[2025-07-02] MEDS: MYSOLINE 25 MG PO (08:07)
[2025-07-02] MEDS: ASPIR LOW (ENTERIC COATED) 81 MG PO (08:07)
[2025-07-02] MEDS: TOPROL XL 12.5 MG PO (08:07)
[2025-07-02] MEDS: PROTONIX IV 40 MG IV (08:08)
[2025-07-02] MEDS: NSS (PRESERVATIVE FREE) 10 ML IV (08:08)
[2025-07-02 11:53] LABS: ALT (SGPT) 97 U/L (0-35); AST (SGOT) 56 U/L (14-36); Albumin 3.2 g/dl (3.5-5.0); Alkaline Phosphatase 82 U/L (38-126); Blood Urea Nitrogen 16 mg/dl (7-17); Calcium 8.8 mg/dl (8.4-10.2); Carbon Dioxide 26 mmol/L (22-30); Chloride 106 mmol/L (98-107); Estimated Creatinine Clearance 44 ml/min; Glucose 159 mg/dl (70-99); Potassium 4.2 mmol/L (3.5-5.1); Sodium 139 mmol/L (135-145); Total Protein 6.3 g/dl (6.3-8.2); eGFR > 60.00
--- NOTE | 2025-07-02 12:16 | W.PN.HOSP.TC ---
Addendum entered and electronically signed by Alvaro Colmenares DO 07/02/25 13:56:
Hyponatremia, admission, resolved.
Severe protein/calorie malnutrition of chronic illness -air director consulted.
Original Note:
Today's Communication/Plan
-
Discharge planning
Assessment / Plan
Assessment / Plan
Gen-AAOx3, NAD, cachectic
HEENT-NC, AT, anicteric, clear oral mm, aphthous ulcer on lower inner lip
Neck-supple
CV-reg, no M, +S1/S2
Lungs-clear B/L
Abd-soft, NT, ND
Ext-no edema
Musculoskeletal-no cyanosis, clubbing
Skin-warm and dry
Neuro-grossly non-focal
Psych-calm, cooperative
Generalized weakness -unclear if infectious etiology versus other. Clinically improving overall, feeling less weak but not back to baseline yet. Orthostatic vitals negative.
No obvious infection clinically. No evidence of pneumonia clinically despite MRCP findings. Specifically, she denies shortness of breath, cough, fever or chills.
No fevers in the hospital. WBC count normal. Procalcitonin 0.12.
Transaminitis -unclear etiology. Atorvastatin on hold. Liver enzymes improving.
Viral hepatitis panel negative.
Blood parasite smear negative.
Ultrasound and MRCP consistent with cholelithiasis, no evidence of choledocholithiasis. No evidence of cholecystitis.
Hypokalemia -improved.
GERD -complaining of esophageal discomfort, acid reflux after swallowing. Will start Protonix.
Tachycardia -patient with chronic tachycardia on ECGs since 2021. Suspect this is from a generalized anxiety disorder.
- Improved
-Continue metoprolol
-TSH wnl.
Normocytic anemia -likely chronic inflammatory anemia from underlying rheumatoid arthritis. Hemoglobin stable and at baseline.
Rheumatoid arthritis/polymyalgia,
- On Remicade as outpatient
DVT prophylaxis�Lovenox subcu
CODE STATUS�full code
Dispo -medically stable for discharge to SNF. Updated case management.
Anticipated Discharge: Within 24 hours
Subjective/Interval History
-
Date of Service: July 02, 2025
Patient seen and examined. Complaining of pain on lower inner lip.
Objective Data
-
Labs:
Laboratory Results
07/02/25
10:57
Sodium 139
Potassium 4.2
Chloride 106
Carbon Dioxide 26
BUN 16
Creatinine 0.5 L
Glucose 159 H
Calcium 8.8
Total Bilirubin 0.3
AST 56 H
ALT 97 H
Alkaline Phosphatase 82
Vital Signs:
Vital Signs
Temp Pulse Resp BP Pulse Ox
98.5 F 90 17 121/66 96
07/02/25 07:32 07/02/25 07:32 07/02/25 07:32 07/02/25 07:32 07/02/25 07:32
I&O
07/01/25 07/02/25 07/03/25
06:59 06:59 06:59
Intake Total 1080 / 1080 720 / 720
Balance 1080 / 1080 720 / 720
Review of Systems
-
History Source: Patient
All other systems: Reviewed and negative
--- NOTE | 2025-07-02 13:40 | CM ---
Addendum entered by Barbara Jose 07/02/25 14:52:
Pt's daughter will pick patient up today around 5:30/6:00 to go to [facility].
Original Note:
CM spoke with pt's daughter regarding discharge to SNF vs. discharge to daughter's home with VN. Private room is preferred; TT sent to Rosaura Soliman to check availability. Pt's is currently at [facility], and pt typically visits him
daily, so if a private room is not available at [facility], she will likely opt to go to [facility] so she can visit her there.
Pt's daughter is going to speak with Linda and will call me back after speaking with Linda. Daughter feels comfortable driving her mother to [facility].
[facility] Report: [phone]
[facility]
--- NOTE | 2025-07-02 14:54 | W.DS.TRANS ---
DC Summary - [employer]
-
Discharge Instructions:
Discharge Diagnosis/Procedures Generalized weakness, elevated liver enzymes,
electrolyte abnormalities, malnutrition
Diet Regular
Activity With assistance,As tolerated
Driving Restrictions No driving
Bathing Restrictions None
Blood Work CBC, CMP in 1 week
Instructions:
Stand-Alone Forms:
Changes to Home Medications: No
Discharge Medications:
DC Medications w/original date entered in [employer]
atorvastatin 10 mg tablet 10 mg PO DAILY High Cholesterol 05/26/18
Held on 07/02/25. Instructions: Resume on 07/08/25.
primidone 50 mg tablet 25 mg PO DAILY 05/26/18
aspirin 81 mg tablet,delayed release 81 mg PO DAILY Blood Clot Prevention/Tx 06/28/25
calcium 500 mg (as carbonate)-vitamin D3 10 mcg (400 unit) tablet (Calcium 500 + D) 1 tab PO BID Supplement 06/28/25
metoprolol succinate 25 mg tablet,extended release 24 hr (Toprol XL) 12.5 mg PO DAILY Heart Failure 06/28/25
pantoprazole 40 mg tablet,delayed release (Protonix) 40 mg PO DAILY #30 tabs 07/02/25
polyethylene glycol 3350 17 gram oral powder packet 17 g PO DAILYPRN PRN constipation #0 ea 07/02/25
potassium chloride 20 mEq tablet,extended release(part/cryst) 20 meq PO DAILY #7 tabs 07/02/25
sennosides 8.6 mg tablet (Deyanira-dulce) 17.2 mg (2 x 8.6 mg) PO HS #0 tabs 07/02/25
Home Medication Changes
Pending Results: No
[2025-07-02 15:16] VITALS: BP 127/70
== END 2025-07-02 17:32 | DRG 640 ==
LOC: 3 WEST ACU 20:09
PROVIDERS: Emergency Medicine; Hospitalist; Nurse Practitioner; ADMITTING PHYSICIAN Internal Medicine; ATTENDING PHYSICIAN Hospitalist; CONSULT PHYSICIAN Internal Medicine Gastroenterology; EMERGENCY PHYSICIAN Emergency Medicine; FAMILY PHYSICIAN Internal Medicine Geriatric Medicine
DX: E87.1 Hypo-osmolality and hyponatremia (principal); E43 Unspecified severe protein-calorie malnutrition; Z68.1 Body mass index [BMI] 19.9 or less, adult; R64 Cachexia; K21.9 Gastro-esophageal reflux disease without esophagitis; D64.9 Anemia, unspecified; M06.9 Rheumatoid arthritis, unspecified; M35.3 Polymyalgia rheumatica; E87.6 Hypokalemia; R53.1 Weakness; E78.00 Pure hypercholesterolemia, unspecified; J43.9 Emphysema, unspecified; I10 Essential (primary) hypertension; F40.01 Agoraphobia with panic disorder; G43.909 Migraine, unspecified, not intractable, without status migrainosus; Z88.0 Allergy status to penicillin; Z79.82 Long term (current) use of aspirin; Z79.899 Other long term (current) drug therapy; Z90.710 Acquired absence of both cervix and uterus; Z79.620 Long term (current) use of immunosuppressive biologic; M81.0 Age-related osteoporosis without current pathological fracture
CPT/HCPCS: 51701; 71046; 74181; 76700; 80053; 81003; 81015; 82248; 82977; 83605; 83690; 83735; 84145; 84443; 85025; 85027; 86618; 86705; 86706; 86709; 86803; 87015; 87086; 87207; 87340; 87468; 87484; 87502; 87798; 87811; 93005; 96361; 96374; 97162; 99285

== ENCOUNTER → 2025-08-28 11:10 | Outpatient (REF) | payer MEDICARE, OTHER, SELFPAY | LOC: HWRCS 11:10 | PROVIDERS: ATTENDING PHYSICIAN Internal Medicine Cardiovascular Disease; FAMILY PHYSICIAN Internal Medicine Geriatric Medicine | DX: R00.0 Tachycardia, unspecified (principal); R53.83 Other fatigue; I10 Essential (primary) hypertension; R06.09 Other forms of dyspnea | CPT/HCPCS: 78452; 93017; A9500; J2785 ==

== ENCOUNTER → 2025-09-02 08:08 | Outpatient (REF) | payer MEDICARE, OTHER, SELFPAY ==
[2025-09-02 09:38] LABS: Urine Character Clear (Clear)
[2025-09-02 09:46] LABS: Hematocrit 35.7 % (37.0-47.0); Hemoglobin 11.6 g/dL (12.0-16.0); Mean Corp Hgb Conc. 32.5 g/dL (33.0-37.0); Mean Corpuscular Volume 98.1 fL (81.0-99.0); Nucleated Red Blood Cells % 0 %; Platelet Count 301 10^3/uL (130-400); Red Cell Dist. Width 12.8 % (11.5-14.5)
[2025-09-02 09:55] LABS: ALT (SGPT) 20 U/L (0-35); AST (SGOT) 26 U/L (14-36); Albumin 4.6 g/dl (3.5-5.0); Alkaline Phosphatase 76 U/L (38-126); Blood Urea Nitrogen 12 mg/dl (7-17); Calcium 9.7 mg/dl (8.4-10.2); Carbon Dioxide 31 mmol/L (22-30); Chloride 102 mmol/L (98-107); Glucose 88 mg/dl (70-99); Magnesium 2.0 mg/dl (1.6-2.3); Potassium 4.5 mmol/L (3.5-5.1); Sodium 137 mmol/L (135-145); Total Protein 8.1 g/dl (6.3-8.2); eGFR > 60.00
[2025-09-02 10:08] LABS: C-Reactive Protein < 5.00 mg/L (0.0-10.00)
[2025-09-02 11:15] LABS: Folate > 20.0 ng/ml (2.76-20); Vitamin B12 > 1000 pg/ml (239-931)
== END ==
LOC: RCS 08:08
PROVIDERS: ATTENDING PHYSICIAN Internal Medicine Cardiovascular Disease; FAMILY PHYSICIAN Internal Medicine Geriatric Medicine; OTHER PHYSICIAN Nurse Practitioner Family
DX: R00.0 Tachycardia, unspecified (principal); R53.83 Other fatigue; I10 Essential (primary) hypertension; E43 Unspecified severe protein-calorie malnutrition
CPT/HCPCS: 36415; 80053; 81003; 82607; 82746; 83735; 84443; 85025; 85652; 86140; 93225; 93226

== ENCOUNTER → 2025-09-07 10:08 | Outpatient (REF) | payer MEDICARE, OTHER, SELFPAY | LOC: RCS 10:08 | PROVIDERS: ATTENDING PHYSICIAN Nurse Practitioner Family; FAMILY PHYSICIAN Internal Medicine Geriatric Medicine | DX: R53.1 Weakness (principal); R06.09 Other forms of dyspnea; I50.32 Chronic diastolic (congestive) heart failure | CPT/HCPCS: 93306 ==